=== PATIENT | female | born 1945 | race African-American/Black ===

== ENCOUNTER 2017-01-22 20:42 | Emergency (ER) | payer OTHER ==
[~2017-01-22] VITALS: Ht 162.6 cm; Wt 65.8 kg
[~2017-01-22 20:42] MED LIST: ACETAMINOPHEN-1 EAC1 PO; AMARYL2 MG PO; AMLODIPINE BESY10 MG PO; BLEPH-105 ML OPHTHALMIC; CEPHALEXIN 500500 M2 PO; FLEXERIL PO; IBUPROFEN 600600 M1 PO; LORTAB 5 MG/5001 TA1 PO; MEDROL DOSPAK21 TAB PO; NORCO 5-325 TA1 EACH PO; PERCOCET 5-3251 EACH PO; QUINU10 PD; TRAMADOL 50 MG50 MG PO; ULTRAM 50MG TAB50 MG PO; ZOFRAN ODT4 MG PO; [UNRECOGNIZED DRUG - OTHER] GTT
[2017-01-22 20:44] VITALS: BP 207/111
[2017-01-22] MEDS ORDERED: ULTRAM 50MG TAB50 MG PO (21:12)
[2017-01-22] MEDS ORDERED: IBUPROFEN 600600 M1 PO (21:13)
== END 2017-01-22 21:31 | disposition home or self-care (01) ==
LOC: ER 20:42
DX: K08.89 Other specified disorders of teeth and supporting structures (principal); E11.9 Type 2 diabetes mellitus without complications; I10 Essential (primary) hypertension; F10.99 Alcohol use, unspecified with unspecified alcohol-induced disorder; Z90.710 Acquired absence of both cervix and uterus; Z88.5 Allergy status to narcotic agent; Z88.8 Allergy status to other drugs, medicaments and biological substances

== ENCOUNTER → 2017-04-05 | Outpatient (CLI) | payer OTHER | LOC: SEN 08:49 | DX: I10 Essential (primary) hypertension (principal) ==

== ENCOUNTER → 2017-05-17 | Outpatient (CLI) | payer OTHER ==
--- NOTE | ~2017-05-17 | 2DMMODE ---
[facility] [place] [place] [address] 2 D/M-MODE ECHOCARDIOGRAM Name: LES GURROLA Room #: REG [facility]#: [id number] Admission: 05/17/17 Attend Phys: Shahbaz Frey, Discharge: Date of : 43 Date of Service: 05/17/17 1220 Report #: [id number] THIS REPORT FOR: //name// APPROVED REPORT Study performed: 05/17/2017 09:18:04 EXAM: Comprehensive 2D, Doppler, and color-flow Echocardiogram Patient Location: Out-Patient Status: routine BSA: 1.68 HR: 69 bpm BP: 120/82 mmHg Rhythm: NSR Other Information Study Quality: Good Indications Murmur 2D Dimensions RVDd: 32.15 mm LVEF(%): 60.69 (>50%) IVSd: 11.39 (7-11mm) LVOT Diam: 19.22 (18-24mm) LVDd: 48.27 mm PWd: 10.55 (7-11mm) LVDs: 32.59 (25-40mm) Aortic Root: 30.48 mm Plascencia's LVEF: 60.69 % Volumes Left Atrial Volume (Systole) Single Plane 4CH: 56.74 mL Single Plane 2CH: 52.47 mL LA ESV Index: 36.00 mL/m2 Aortic Valve AoV Peak Reece.: 1.84 m/s AO Peak Gr.: 14.12 mmHg LVOT Max P.26 mmHg LVOT Max V: 1.35 m/s QUINTIN Vmax: 2.13 cm2 Mitral Valve E/A Ratio: 0.6 MV Decel. Time: 288.10 ms [facility] [place] [address] 2 D/M-MODE ECHOCARDIOGRAM Name: LES GURROLA Room #: [facility]#: [id number] Admission: 05/17/17 Attend Phys: Shahbaz Frey, Discharge: Date of : 43 Date of Service: 05/17/17 1220 Report #: [id number] MV E Max Reece.: 0.75 m/s MV A Reece.: 1.16 m/s MV PHT: 83.55 ms IVRT: 92.27 ms Pulmonary Valve PV Peak Reece.: 1.33 m/s PV Peak Gr.: 7.11 mmHg Pulmonary Vein P Vein S: 0.65 m/s P Vein A: 0.28 m/s P Vein D: 0.29 m/s P Vein A Dur.: 143.0 msec P Vein S/D Ratio: 2.24 Tricuspid Valve TR Peak Reece.: 2.77 m/s RAP Estimate: 5.00 mmHg TR Peak Gr.: 30.72 mmHg PA Pressure: 36.00 mmHg Left Ventricle The left ventricle is normal size. Regional wall motion is not well visualized but grossly normal. There is normal left ventricular wall thickness. Left ventricular systolic function is at lower lilmits of normal LVEF is 50%. Mild diastolic dysfunction is present (impaired relaxation pattern). Right Ventricle The right ventricle is normal size. The right ventricular systolic function is normal. Atria Left atrium is mildly dilated. Right atrium is mildly dilated. Aortic Valve Aortic valve leaflets are mildly thickened, mildly calcified, trileaflet. Mild aortic regurgitation. There is no aortic valvular stenosis. Mitral Valve The mitral valve is normal in structure. Mild mitral regurgitation. No evidence of mitral valve stenosis. Tricuspid Valve The tricuspid valve is normal in structure. Mild to moderate tricuspid regurgitation. Estimated PAP is 35-40mmHg. [address] [address] 2 D/M-MODE ECHOCARDIOGRAM Name: LES GURROLA Room #: REG Shan#: [id number] Admission: 05/17/17 Attend Phys: Shahbaz Frey, Discharge: Date of : 43 Date of Service: 05/17/17 1220 Report #: [id number] Pulmonic Valve The pulmonary valve is normal in structure. Mild pulmonic regurgitation. Great Vessels The aortic root is normal in size. IVC is normal in size and collapses >50% with inspiration. Pericardium There is no pericardial effusion. <Conclusion> Left ventricular systolic function is at lower lilmits of normal LVEF is 50%. Mild diastolic dysfunction Both atria are mildly dilated. Aortic valve leaflets are mildly thickened, mildly calcified, trileaflet. Mild aortic regurgitation, no stenosis. Structrally normal mitral vavle. Mild mitral regurgitation. Pulmonary artery pressure of 34-40mmHg No pericardial effusion <ELECTRONICALLY SIGNED> By: Db Traore MD, FACC 05/17/17 1220 1220 1220 Db Traore MD, FACC /INF
== END ==
LOC: CV 08:52
DX: I08.0 Rheumatic disorders of both mitral and aortic valves (principal); I63.9 Cerebral infarction, unspecified; R01.1 Cardiac murmur, unspecified; R09.89 Other specified symptoms and signs involving the circulatory and respiratory systems

== ENCOUNTER 2017-11-17 04:47 | Emergency (ER) | payer OTHER ==
[~2017-11-17] VITALS: Ht 162.6 cm; Wt 62.1 kg
--- NOTE | ~2017-11-17 | EKG ---
[place] [address] [facility] [place] [employer] [place] [address] ELECTROCARDIOGRAM REPORT Name: LES GURROLA [id number] Admission: 11/17/17 Attend Phys: Discharge: 11/17/17 Date of : 43 Report #: [id number] THIS REPORT FOR: //name// [facility] ED Test Date: 2017-11-17 Test Time: 05:11:49 Pat Name: LES GURROLA Department: Room: Gender: F Lowerator Operator: WYATT FELIX : 1945 Requested By: Dilia Galloway Order Number: [id number] MD: Db Traore Measurements Intervals [place] Rate: 60 P: -32 MA: 154 QRS: -24 QRSD: 150 T: 87 QT: 514 QTc: 514 Interpretive Statements Sinus rhythm Left bundle branch block No previous ECG available for comparison Electronically Signed On 11-17-2017 10:19:43 CDT by Db Traore [email or web address] <ELECTRONICALLY SIGNED> By: Db Traore MD, [facility] 11/17/17 1019 0511 0511 Db Traore MD, FACC /EPI
[~2017-11-17 04:47] MED LIST changes: +QUINU10 PD PO
[2017-11-17] MEDS ORDERED: NORVASC5 MG PO (04:57)
[2017-11-17 05:09] LABS: ABSOLUTE NEUTROPHILS 4.9 thou/uL (1.4-8.2); BASOPHILS 0.8 % (0.0-2.0); EOSINOPHILS 1.5 % (0.0-3.0); HEMATOCRIT 28.5 % (37.0-47.0); LYMPHOCYTES 25.4 % (24.0-44.0); MCH 33.9 pg (26.0-34.0); MONOCYTES 5.5 % (1.0-8.0); PLATELET COUNT 171 thou/uL (150-400); POLYS 66.8 % (36.0-66.0); RBC 2.94 mil/uL (4.20-5.00); WBC 7.3 thou/uL (4.0-11.0)
[2017-11-17 05:10] LABS: CALCIUM 9.2 mg/dL (8.5-10.1); CREATININE 2.1 mg/dL (0.6-1.0); POTASSIUM 3.3 mmol/L (3.5-5.1)
[2017-11-17 05:19] LABS: URINE BILIRUBIN NEGATIVE (Negative); URINE BLOOD TRACE (Negative); URINE CLARITY CLEAR; URINE COLOR YELLOW; URINE GLUCOSE-RANDOM* NEGATIVE (Negative); URINE KETONES NEGATIVE (Negative); URINE LEUKOCYTES-REFLEX NEGATIVE (Negative); URINE NITRITE-REFLEX NEGATIVE (Negative); URINE PROTEIN (DIPSTICK) 2+ (Negative); URINE UROBILINOGEN 0.2 E.U./dl (0.2-1.0)
[2017-11-17 05:31] LABS: BACTERIA-REFLEX None Seen /HPF (None Seen); CASTS None Seen /LPF (None Seen); CRYSTALS None Seen /LPF (None Seen); MUCUS None Seen strn/LPF (None Seen); SQUAMOUS 0-3 Few /LPF (0-3); URINE RBC 0-2 Rare /HPF (0-2); URINE WBC-REFLEX 0-5 Rare /HPF (0-5)
[2017-11-17 05:35] LABS: LARGE PLATELETS RARE
[2017-11-17 07:07] VITALS: BP 208/90
== END 2017-11-17 07:08 | disposition home or self-care (01) ==
LOC: ER 04:47
PROVIDERS: Emergency Medicine
DX: S00.83XA Contusion of other part of head, initial encounter (principal); R42 Dizziness and giddiness; I10 Essential (primary) hypertension; E11.9 Type 2 diabetes mellitus without complications; Z90.710 Acquired absence of both cervix and uterus; W19.XXXA Unspecified fall, initial encounter; Y93.89 Activity, other specified; Y92.89 Other specified places as the place of occurrence of the external cause; Y99.8 Other external cause status

== ENCOUNTER 2017-11-17 20:52 | Inpatient (IN) | payer OTHER ==
[~2017-11-17] VITALS: Ht 165.1 cm; Wt 58.7 kg
--- NOTE | ~2017-11-17 | EEG ---
[facility] [address] [place] [address] ELECTROENCEPHALOGRAM Name: LES GURROLA Room #: 420-P [facility] IN M.R.#: [id number] Admission: 11/17/17 Attend Phys: Jerson Deal MD Discharge: Date of : 43 Report #: [id number] THIS REPORT FOR: //name// CC: Jerson Levine DATE OF SERVICE: 11/19/2017 This patient is being evaluated for altered mental status and passing out spell. EEG was done by placing the electrodes by standard 10-20 system of electrode placement. Both referential and sequential montages were used for recording. Background activity in this patient's EEG is about 8 Hz and 30 microvolt. It is intermixed with theta range slowing on both sides. The patient went to sleep and that is associated with bilaterally symmetrical sleep spindle and vertex sharp waves. Photic stimulation is unremarkable. Throughout the record, no active epileptiform activity was noticed. IMPRESSION: Moderately abnormal EEG because it is intermixed with theta range slowing on both sides. That is a nonspecific abnormality which can occur with encephalopathy, effect of psychotropic medication, dementia, etc. No active epileptiform activity was noticed during this record. Thank you very much for this referral. By: 1215 1350 Sanjeev Delgado MD /nt
--- NOTE | ~2017-11-17 | HC ---
[facility] [place] [address] CONSULTATION Name: LES GURROLA Room #: 420-P [facility] IN M.R.#: [id number] Admission: 11/17/17 Attend Phys: Jerson Deal MD Discharge: Date of : 43 Report #: [id number] THIS REPORT FOR: //name// CC: Jerson Levine DATE OF SERVICE: 11/18/2017 HISTORY OF PRESENT ILLNESS: This is a 72-year-old female patient who was evaluated by me for dizziness. History is poorly defined. She said she has been dizzy for about 2 months. It is worse when she stands up. It is severe and she falls down because of that. It started spontaneously without any trauma. There is no associated focal deficit. She does have a significantly decreased memory. She has seen a neurologist who ordered an MRI in this patient and started the patient on Namenda. The patient has not used Namenda or filled up the prescription yet. REVIEW OF SYSTEMS: Indicate that this patient apparently has a history of dementia, diabetes, hypertension and now she has dizziness. She also has falls. A 14-point review of system was carried out and she has a history of depression and corneal abrasion. She is not complaining of any pain anywhere. She does not have any new eye, ENT, cardiac, respiratory, GI, , musculoskeletal, constitutional, dermatological, hematological, psychiatric, throat, allergic symptom associated with present symptomatology. PAST MEDICAL HISTORY: Positive for what looks like dementia. FAMILY HISTORY: Negative for any early age stroke. SOCIAL HISTORY: She denies the use of alcohol. PHYSICAL EXAMINATION: Indicate she is alert. She thinks it is March. She does not know what hospital she is in. Her memory and fund of knowledge is very poor. Cranial nerve examination 2-12 looks mostly unremarkable. Her pupil is somewhat asymmetrical, but I think it may be old. She has symmetrical strength, sensation, reflexes and tone in all 4 extremities. There is no cerebellar sign. She does appear to have some cataract, so I could not look at the fundus very well. She is moderately well built individual. She has no meningeal signs. She has no thyroid mass. Cardiac examination showed a question of murmur. No respiratory difficulty or rhonchi was noticed. Pulses are palpable. She has no edema, cyanosis or jaundice. Her vision and hearing looks adequate. Blood pressure is 167/86, respirations 16, pulse is 74, temperature is 97.9. LABORATORY DATA: Her last sodium is normal. Her B12 and TSH are normal. No imaging studies available. She apparently went down for MRI, [place] [address] CONSULTATION Name: UYEN GURROLARay Desai Room #: 420-P [facility] IN M.R.#: [id number] Admission: 11/17/17 Attend Phys: Jerson Deal MD Discharge: Date of : 43 Report #: [id number] IMPRESSION: This patient appeared to have pretty significant dementia as well as dizziness. We need to await for MRI to see if there is any reason for that. We may have to do further testing. I will check an EEG in this patient because she is having repeated fall and has dementia. Her further workup will depend upon the outcome of this testing. We will also check for any postural hypotension. RECOMMENDATIONS: 1. We will get an EEG done. 2. We will await the MRI. 3. She may need some more workup depending upon that. 4. She does have a pretty advanced dementia and she will need supervised care all the time. Her family came in and I discussed that with the family and they are agreeable with this plan. Thank you very much for this referral. By: 1700 Sanjeev Delgado MD /nt
--- NOTE | ~2017-11-17 | 2DMMODE ---
[facility] [address] [place] [address] 2 D/M-MODE ECHOCARDIOGRAM Name: LES GURROLA Room #: 420-P [facility] IN ..#: [id number] Admission: 11/17/17 Attend Phys: Jerson Deal, Discharge: Date of : 43 Date of Service: 11/18/17 1316 Report #: [id number] THIS REPORT FOR: //name// APPROVED REPORT Study performed: 11/18/2017 10:51:47 EXAM: Comprehensive 2D, Doppler, and color-flow Echocardiogram Patient Location: Echo lab Room #: [facility] Status: routine BSA: 1.64 HR: 68 bpm BP: 167/86 mmHg Rhythm: NSR Other Information Study Quality: Adequate Technically limited study due to highly uncooperative patient, unable to finish exam. Indications Dizziness. Hx: murmur, DM, HTN. 2D Dimensions RVDd: 35.17 mm LVEF(%): 32.89 (>50%) IVSd: 14.09 (7-11mm) LVOT Diam: 20.41 (18-24mm) LVDd: 60.23 mm PWd: 10.59 (7-11mm) Ascending Ao: 37.62 (22-36mm) LVDs: 50.65 (25-40mm) Aortic Root: 32.12 mm Plascencia's LVEF: 32.89 % Volumes Left Atrial Volume (Systole) Single Plane 4CH: 68.97 mL Single Plane 2CH: 54.84 mL LA ESV Index: 40.00 mL/m2 Aortic Valve AoV Peak Reece.: 1.49 m/s AO Peak Gr.: 8.91 mmHg LVOT Max P.82 mmHg LVOT Max V: 1.10 m/s QUINTIN Vmax: 2.40 cm2 Mitral Valve [facility] [employer] [address] 2 D/M-MODE ECHOCARDIOGRAM Name: LES GURROLA Room #: 420-P [facility] IN M.R.#: [id number] Admission: 11/17/17 Attend Phys: Jerson Deal, Discharge: Date of : 43 Date of Service: 11/18/17 1316 Report #: [id number] E/A Ratio: 0.4 MV Decel. Time: 303.59 ms MV E Max Reece.: 0.59 m/s MV A Reece.: 1.32 m/s MV PHT: 88.04 ms IVRT: 155.71 ms Pulmonary Valve PV Peak Reece.: 1.84 m/s PV Peak Gr.: 15.25 mmHg Pulmonary Vein P Vein S: 0.48 m/s P Vein A: 0.26 m/s P Vein D: 0.22 m/s P Vein A Dur.: 110.7 msec P Vein S/D Ratio: 2.18 Tricuspid Valve TR Peak Reece.: 2.47 m/s TR Peak Gr.: 24.47 mmHg Left Ventricle Left ventricle is dilated. Regional wall motion abnormalities are noted. With anteroseptal and septal apical severe hypokinesis to akinesis Mild basal septal hypertrophy is present. Left ventricular systolic function is moderately decreased. LVEF is 35-40%. Mild diastolic dysfunction is present (impaired relaxation pattern). Right Ventricle The right ventricle is normal size. The right ventricular systolic function is normal. Atria Left atrium is dilated. Right atrium is dilated. Aortic Valve The Aortic valve is sclerotic. Mild aortic regurgitation. There is no aortic valvular stenosis. Mitral Valve Mitral valve leaflets are thickened. Moderate mitral regurgitation. Tricuspid Valve The tricuspid valve is normal in structure. Mild tricuspid regurgitation. Estimated PAP of 25mmHg plus the right atrial pressure. [facility] [address] [place] [address] 2 D/M-MODE ECHOCARDIOGRAM Name: LES GURROLA Room #: 420-P [facility] IN [facility]#: [id number] Admission: 11/17/17 Attend Phys: Jerson Deal, Discharge: Date of : 43 Date of Service: 11/18/17 1316 Report #: [id number] Pulmonic Valve The pulmonary valve is normal in structure. Trace pulmonic regurgitation. Great Vessels The aortic root is normal in size. The ascending aorta is normal in size. IVC is not visualized. Pericardium There is no pericardial effusion. <Conclusion> LVEF is 35-40%. Regional wall motion abnormalities are noted. With anteroseptal and septal apical severe hypokinesis to akinesis Left atrium is dilated. Right atrium is dilated. The Aortic valve is sclerotic. Mild aortic regurgitation. Mitral valve leaflets are thickened. Moderate mitral regurgitation. The tricuspid valve is normal in structure. Mild tricuspid regurgitation. Estimated PAP of 25mmHg plus the right atrial pressure. The pulmonary valve is normal in structure. Trace pulmonic regurgitation. There is no pericardial effusion. <ELECTRONICALLY SIGNED> By: Luís Singletary MD 11/18/17 1316 15 15 Luís Singletary MD /INF
--- NOTE | ~2017-11-17 | EKG ---
[address] [place] [place] [address] ELECTROCARDIOGRAM REPORT Name: LES GURROLA Room #: 420-P [facility] IN .R.#: [id number] Admission: 11/17/17 Attend Phys: Jerson Deal MD Discharge: Date of : 43 Report #: [id number] THIS REPORT FOR: //name// [facility] ED Test Date: 2017-11-17 Test Time: 21:20:44 Pat Name: LES GURROLA Department: Room: Gender: F Credit Clerk: TORRES : 1945 Requested By: Dilia Galloway Order Number: [id number] MD: bD Traore Measurements Intervals [place] Rate: 60 P: -23 [place]: 152 QRS: -22 QRSD: 153 T: 90 QT: 522 QTc: 522 Interpretive Statements Sinus rhythm Left bundle branch block Compared to ECG 11/17/2017 05:11:49 No significant changes Electronically Signed On 11-18-2017 10:01:11 CDT by Db Traore [email or web address] <ELECTRONICALLY SIGNED> By: Db Traore MD, [facility] 11/18/171000 19 19 Db Traore MD, [facility] /EPI
[~2017-11-17 20:52] MED LIST changes: +NORVASC5 MG PO
[2017-11-17 20:58] VITALS: BP 199/98
[2017-11-17 23:44] VITALS: BP 178/91
[2017-11-18 00:06] VITALS: BP 175/81
[2017-11-18 00:15] VITALS: BP 192/94
[2017-11-18 04:20] VITALS: BP 162/84
[2017-11-18 04:26] LABS: TSH 2.211 uIU/mL (0.358-3.740)
[2017-11-18 04:54] LABS: FOLIC ACID 35.2 ng/mL (8.6-58.9)
[2017-11-18 09:20] VITALS: BP 167/86
[2017-11-18 09:28] VITALS: BP 167/86
[2017-11-18 10:20] VITALS: BP 175/81
[2017-11-19 06:10] LABS: HEMATOCRIT 29.9 % (37.0-47.0); HEMOGLOBIN 10.1 gm/dL (12.0-15.0); MCH 33.1 pg (26.0-34.0); MCHC 33.8 g/dL (28.0-37.0); MCV 97.8 fL (80.0-100.0); RBC 3.06 mil/uL (4.20-5.00); RDW 12.9 % (10.5-14.5); WBC 7.6 thou/uL (4.0-11.0)
[2017-11-19 06:40] LABS: ANION GAP 8 mmol/L (7-16); BUN 26 mg/dL (7-18); CALCIUM 9.5 mg/dL (8.5-10.1); CHLORIDE 108 mmol/L (98-107); CO2 27 mmol/L (21-32); CREATININE 1.9 mg/dL (0.6-1.0); GLUCOSE 85 mg/dL (74-106); POTASSIUM 3.4 mmol/L (3.5-5.1); SODIUM 143 mmol/L (136-145); TROPONIN-I <0.06 ng/mL (<0.06)
[2017-11-19 07:30] VITALS: BP 181/94
[2017-11-19 15:15] VITALS: BP 179/70
[2017-11-19 20:33] VITALS: BP 166/103
[2017-11-19 23:00] VITALS: BP 155/92
[2017-11-20 05:20] VITALS: BP 139/99
[2017-11-20 05:33] LABS: HEMATOCRIT 33.8 % (37.0-47.0); HEMOGLOBIN 11.3 gm/dL (12.0-15.0); MCH 32.5 pg (26.0-34.0); MCHC 33.5 g/dL (28.0-37.0); MCV 96.9 fL (80.0-100.0); RBC 3.49 mil/uL (4.20-5.00); RDW 12.6 % (10.5-14.5); WBC 12.2 thou/uL (4.0-11.0)
[2017-11-20 05:40] LABS: CALCIUM 9.4 mg/dL (8.5-10.1); CREATININE 1.9 mg/dL (0.6-1.0); MAGNESIUM 1.8 mg/dL (1.8-2.4); POTASSIUM 3.6 mmol/L (3.5-5.1)
[2017-11-20 07:27] VITALS: BP 170/96
[2017-11-20 15:34] VITALS: BP 175/91
[2017-11-20 16:42] LABS: URINE BILIRUBIN NEGATIVE (Negative); URINE BLOOD 1+ (Negative); URINE CLARITY CLEAR; URINE COLOR YELLOW; URINE GLUCOSE-RANDOM* NEGATIVE (Negative); URINE KETONES TRACE (Negative); URINE LEUKOCYTES-REFLEX NEGATIVE (Negative); URINE NITRITE-REFLEX NEGATIVE (Negative); URINE PROTEIN (DIPSTICK) 2+ (Negative); URINE UROBILINOGEN 0.2 E.U./dl (0.2-1.0)
[2017-11-20 16:57] LABS: CASTS None Seen /LPF (None Seen)
[2017-11-20 16:58] LABS: SQUAMOUS 4-10 Moderate /LPF (0-3); URINE WBC-REFLEX 0-5 Rare /HPF (0-5)
[2017-11-20 16:59] LABS: BACTERIA-REFLEX None Seen /HPF (None Seen); CRYSTALS None Seen /LPF (None Seen); URINE RBC 3-10 Few /HPF (0-2)
[2017-11-20 19:25] VITALS: BP 120/61
[2017-11-21 05:39] LABS: HEMATOCRIT 28.5 % (37.0-47.0); HEMOGLOBIN 9.8 gm/dL (12.0-15.0); MCH 33.6 pg (26.0-34.0); MCHC 34.5 g/dL (28.0-37.0); MCV 97.5 fL (80.0-100.0); RBC 2.93 mil/uL (4.20-5.00); RDW 12.6 % (10.5-14.5); WBC 8.2 thou/uL (4.0-11.0)
[2017-11-21 05:57] LABS: CALCIUM 8.4 mg/dL (8.5-10.1); CREATININE 1.9 mg/dL (0.6-1.0); MAGNESIUM 1.7 mg/dL (1.8-2.4); POTASSIUM 3.4 mmol/L (3.5-5.1)
[2017-11-21 07:15] VITALS: BP 179/90
[2017-11-21] MEDS ORDERED: NITRO-BID1 GM TOP (12:56)
[2017-11-21] MEDS ORDERED: MAGOX 400400 MG PO (12:56)
[2017-11-21] MEDS ORDERED: ANTIVERT25 MG PO (12:56)
[2017-11-21] MEDS ORDERED: COZAAR100 MG PO (12:56)
[2017-11-21] MEDS ORDERED: COLACE100 MG PO (12:56)
[2017-11-21] MEDS ORDERED: COREG6.25 MG PO (12:56)
[2017-11-21] MEDS ORDERED: TYLENOL325 MG PO (12:56)
[2017-11-21] MEDS ORDERED: MIRALAX17 GM PO (12:56)
[2017-11-21 15:41] VITALS: BP 190/96
== END 2017-11-21 16:20 | DRG 70 ==
LOC: ER 20:52 → 4E 23:23 → EROBS 23:23 → 4E 23:23
PROVIDERS: Internal Medicine; Nurse Practitioner Family
DX: G93.41 Metabolic encephalopathy (principal); E43 Unspecified severe protein-calorie malnutrition; N17.9 Acute kidney failure, unspecified; I42.9 Cardiomyopathy, unspecified; F03.90 Unspecified dementia, unspecified severity, without behavioral disturbance, psychotic disturbance, mood disturbance, and anxiety; R41.0 Disorientation, unspecified; E11.22 Type 2 diabetes mellitus with diabetic chronic kidney disease; I12.9 Hypertensive chronic kidney disease with stage 1 through stage 4 chronic kidney disease, or unspecified chronic kidney disease; D72.829 Elevated white blood cell count, unspecified; E87.6 Hypokalemia; E83.42 Hypomagnesemia; K59.00 Constipation, unspecified; N18.9 Chronic kidney disease, unspecified; Z68.21 Body mass index [BMI] 21.0-21.9, adult; Z98.42 Cataract extraction status, left eye; Z90.710 Acquired absence of both cervix and uterus; Z88.6 Allergy status to analgesic agent; Z88.8 Allergy status to other drugs, medicaments and biological substances; Z88.0 Allergy status to penicillin
CPT/HCPCS: 10084

== ENCOUNTER 2017-11-21 14:53 | Inpatient (IN) | payer OTHER ==
[2017-11-21] VITALS: BP 165/89
[~2017-11-21] VITALS: Ht 162.6 cm; Wt 56.7 kg
--- NOTE | ~2017-11-21 | HC ---
[facility] [place] [address] CONSULTATION Name: LES GURROLA Room #: 513-P ADM IN M.R.#: [id number] Admission: 11/21/17 Attend Phys: Pedro Mccormick MD Discharge: Date of : 43 Report #: [id number] THIS REPORT FOR: //name// CC: Pedro Levine DATE OF SERVICE: 11/23/2017 TYPE OF REPORT: Neurobehavioral status exam. ATTENDING PHYSICIAN: Pedro Mccormick M.D. LUMBER STRAIGHTENER: Braden Freeman, PhD. CLINICAL PRESENTATION: The patient is a 72-year-old -[place] female admitted to the [facility] with dizziness, recent fall, confusion and disorientation. She was initially diagnosed with acute renal insufficiency, acute encephalopathy, weakness and cardiomyopathy. Initial treatment included Haldol and Depakote, which have both been discontinued. The patient carries an admitting diagnosis of metabolic encephalopathy, gait instability with falls, dizziness, acute renal insufficiency, premorbid dementia, cardiomyopathy with ejection fraction of 35%-50%, hypokalemia with hypomagnesemia and hypertension. A complete description of her medical condition and history along with medications can be found in her medical record. Neuropsychological consultation was requested to provide assistance in the assessment of cognitive and emotional status and to provide recommendations and services. Prior to this most recent medical event, she was living independently with her daughter. The daughter was providing assistance in the management of instrumental and basic activities of daily living. However, the patient reported to have been able to dress herself. She is a high school graduate. 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 She has 2 children. As indicated, her daughter provides assistance with ADL's to an extent allowing her to maintain living within her community. She has been living with her daughter for many years. TECHNIQUES UTILIZED: Clinical interview, review of medical records, staff consultation and behavioral observation, mini mental status exam 2 standard version, clock drawing. EXAMINATION FINDINGS: The patient was alert and cooperative with the assessment. However, she is confused and disoriented. She is unable to [facility] [address] [place] [address] CONSULTATION Name: LES GURROLA Room #: 513-P [facility] IN ..#: [id number] Admission: 11/21/17 Attend Phys: Pedro Mccormick MD Discharge: Date of : 43 Report #: [id number] indicate prior events that preceded her hospitalization as well as the purpose of her treatment. She has had numerous falls and did strike her head upon this most recent fall but her current presentation is described as more longstanding. Symptoms that are reported include sleep disturbance, anxiety, confusion and memory. She is intermittently very disorganized to location, place and time. Her performance on the MMSE 2 brief version was extremely low with a raw score of 6/30. She was 3/3 for initial registration, 0/5 for orientation to time and 3/[address]. She was 0/3 for immediate recall of 3 items after a brief time delay and distraction. Her performance on the MMSE 2 standard version was extremely low with a raw score of 14/30. She was 0/5 for serial sevens, 2/2 for naming, 1/1 for repetition, 3/3 for auditory comprehension and 1/1 for being able to read and follow a single command. Deficits include difficulty with writing a sentence and unable to copy a simple geometric design. Her performance on clock drawing resulted in perseveration of zero/circles and disorientation in tasks of copying. DIAGNOSTIC IMPRESSION: Major neurocognitive disorder (dementia), possibly due to Alzheimer's disease, without behavior disturbance - extent to be determined, severe at this time. RECOMMENDATIONS: The patient will continue to require 24-hour care that includes assistance in the management of medication, nutrition and finances. Family should also assist her in attending appointments with healthcare providers. Following discharge a workup for dementia is indicated. She may benefit from medication to support memory and an antidepressant medication. Thank you very much for allowing me to provide the consultation on this patient. <ELECTRONICALLY SIGNED> By: Braden Freeman, PhD 11/24/17 1554 1407 2205 Braden Freeman, PhD /nt
--- NOTE | ~2017-11-21 | H ---
[facility] [place] [address] HISTORY AND PHYSICAL Name: LES GURROLA Room #: 513-P ADM IN M.R.#: [id number] Admission: 11/21/17 Attend Phys: Pedro Mccormick MD Discharge: Date of : 43 Report #: [id number] THIS REPORT FOR: //name// CC: Pedro Levine DATE OF SERVICE: 11/21/2017 HISTORY AND PHYSICAL/POSTADMISSION PHYSICIAN EVALUATION HISTORY OF PRESENT ILLNESS: The patient is a 72-year-old -Haitian female, who was originally admitted to [facility] on 11/17/2017. She presented at that time with dizziness and had a fall without noted head injury or loss of consciousness. She was diagnosed and admitted with acute renal insufficiency, acute encephalopathy, weakness and cardiomyopathy. Neurology saw her. MRI showed no acute process. She continued to be more confused than baseline and there was concern with the loss of balance and falling and decreased functional abilities with her decreased cognition. She was treated with some Haldol and Depakote, but family requested discharge of those medications. Renal function has been monitored with creatinine at 2.0. She has been noted to have a significant functional decline from her premorbid status and has now been admitted for acute in-hospital inpatient rehabilitation. PAST MEDICAL HISTORY: Includes history of diabetes mellitus and hypertension. PAST SURGICAL HISTORY: Includes a left vitrectomy and she has had a hysterectomy. MEDICATIONS: Please see the full medication listing. This includes vitamins, herbals, and supplements. HABITS: No history of tobacco abuse or alcohol abuse is noted. ALLERGIES: PENICILLIN, CETIRIZINE, AND HYDROCODONE. SOCIAL HISTORY: She lives with daughter. [place], no steps in, but 6 steps up to the living room with the patient's room, bathroom and kitchen, 6 stairs to enter down the laundry. Daughter does the laundry. The patient did not utilize gait aids. Daughter is noted to work during the day and the patient could care for her basic needs. REVIEW OF SYSTEMS: She did not offer any current complaints of chest pain, shortness of breath or abdominal discomfort. No focal extremity pain complaints. She notes some frustration with her current condition. PHYSICAL EXAMINATION: [address] [address] HISTORY AND PHYSICAL Name: LES GURROLA Room #: 513-P [facility] IN [facility].#: [id number] Admission: 11/21/17 Attend Phys: Pedro Mccormick MD Discharge: Date of : 44 Report #: [id number] GENERAL: She is a 72-year-old -Haitian female, no obvious distress. She is alert. She does not know the name of place, does not know the year. She is pleasant, will follow basic 1 step command. VITAL SIGNS: Last recorded temperature 98.5, pulse 65, respirations 18, blood pressure 185/97. HEENT: Facies appeared symmetric. CHEST: Sounded clear to auscultation. CARDIOVASCULAR: Regular rate and rhythm. ABDOMEN: Bowel sounds positive, nontender. GENITOURINARY AND RECTAL: Deferred. EXTREMITIES: She has functional range of motion of both upper extremities. Strength is grade 4-/5. DTRs are trace to 1. Lower extremities with no focal calf swelling, functional range of motion, strength is grade 4-/5. DTRs are trace to 1. Transfers are contact guard with gait min assist 250 feet. In occupational therapy, lower body dressing is being assessed. She is min assist for bathing and supervision for grooming. ASSESSMENT: A 72-year-old -Haitian female with the following problem list: 1. Metabolic encephalopathy. She is off the Haldol and the Depakote. Significant decline from premorbid status. 2. Gait instability with falls. 3. Dizziness. 4. Acute renal insufficiency. 5. Premorbid dementia. 6. Cardiomyopathy with ejection fraction of 35-50%. 7. Hypokalemia with hypomagnesemia. 8. Hypertension. PLAN: The patient is admitted for acute in-hospital inpatient rehabilitation. From a post-admission physician evaluation perspective, there are no relevant changes since the preadmission screening. Please see the above review of prior and current medical and functional conditions and comorbidities. Please see the patient's previous and current functional status. As far as risk of complications, the patient has multiple medical comorbidities as noted above. The initial plan of care involves the interdisciplinary acute inpatient rehabilitation program with the goal of maximizing the patient's functional independence, so that she can hopefully return back to her prior living situation. Measurable functional goals would be for the patient to become modified independent with transfers, mobility, ADLs, and improvement in cognition, so that she can return back to her prior functional level and return back home with her daughter. Prognosis is reasonably good with estimated length of stay probably at least 7-14 days pending progress. Potential barriers would include her multiple medical comorbidities and decreased functional status. The patient's diagnosis is appropriate. She does meet the medical necessity [address] [address] HISTORY AND PHYSICAL Name: LES GURROLA Room #: 513-P ADM IN M.R.#: [id number] Admission: 11/21/17 Attend Phys: Pedro Mccormick MD Discharge: Date of : 43 Report #: [id number] criteria and we will have the qa consultant physicians involved as indicated. She does have the tolerance for therapies and has appropriate discharge goals back to the home setting. By: 0828 0850 Pedro Mccormick MD /nt
--- NOTE | ~2017-11-21 | PLAN ---
[facility] [place] [address] REHAB UNIT PLAN OF CARE Name: LES GURROLA Room #: 513-P ADM IN M.R.#: [id number] Admission: 11/21/17 Attend Phys: Pedro Mccormick MD Discharge: Date of : 44 Report #: [id number] THIS REPORT FOR: //name// CC: Pedro Levine DATE OF SERVICE: 11/24/2017 PLAN: The overall plan of care is based on the preadmission screen, post-admission physician evaluation and information garnered from therapy assessments. 1. Estimated length of stay is going to be around 7-14 days pending progress. 2. Medical prognosis is reasonably good. 3. Anticipated interventions includes the interdisciplinary acute inpatient rehabilitation program with PT, OT and speech, rehabilitation nursing assisting regarding medication management, skin care prophylaxis, bowel and bladder issues and nursing education. Case management is involved as well as the rest of the interdisciplinary acute inpatient rehabilitation team. The multiple rehab consultant physicians are also involved as well. 4. Anticipated functional outcomes would be for the patient to become modified independent with functional mobility and ADLs and improved cognition to the point where she can return back to the home setting. 5. Discharge destination will be back home where she lives with her daughter. 6. Expected therapy by discipline would include PT, OT and speech 1 hour per day, each five days a week throughout the duration of the acute inpatient rehabilitation stay. By: 1023 [id number] Pedro Mccormick MD /hiral
[~2017-11-21 14:53] MED LIST changes: +ANTIVERT25 MG PO; +COLACE100 MG PO; +COREG6.25 MG PO; +COZAAR100 MG PO; +MAGOX 400400 MG PO; +MIRALAX17 GM PO; +NITRO-BID1 GM TOP; +TYLENOL325 MG PO
[2017-11-21 16:45] VITALS: BP 190/100
[2017-11-21 20:22] VITALS: BP 182/105
[2017-11-22 06:00] VITALS: BP 185/97
[2017-11-22 06:30] LABS: HEMOGLOBIN 9.6 gm/dL (12.0-15.0); MCH 33.4 pg (26.0-34.0); MCHC 35.4 g/dL (28.0-37.0); MCV 94.3 fL (80.0-100.0); RBC 2.86 mil/uL (4.20-5.00); RDW 12.7 % (10.5-14.5); WBC 7.6 thou/uL (4.0-11.0)
[2017-11-22 06:43] LABS: CALCIUM 9.3 mg/dL (8.5-10.1); MAGNESIUM 1.8 mg/dL (1.8-2.4); POTASSIUM 3.8 mmol/L (3.5-5.1)
[2017-11-22 07:30] VITALS: BP 147/91
[2017-11-22 13:35] VITALS: BP 121/57
[2017-11-22 19:56] VITALS: BP 165/85
[2017-11-23 08:53] VITALS: BP 162/88
[2017-11-23 19:30] VITALS: BP 180/102
[2017-11-24 08:30] VITALS: BP 159/84
[2017-11-24 15:57] VITALS: BP 181/97
[2017-11-24 19:46] VITALS: BP 171/89
[2017-11-25 07:45] VITALS: BP 189/101
[2017-11-25 09:52] VITALS: BP 157/85
[2017-11-25] MEDS ORDERED: HYDRALAZINE 10M10 MG PO (09:58)
[2017-11-25] MEDS ORDERED: ERGOCALCIF50000 UNIT PO (09:58)
[2017-11-25] MEDS ORDERED: COZAAR100 MG PO (09:59)
[2017-11-25] MEDS ORDERED: MAGOX 400400 MG PO (09:59)
[2017-11-25 10:12] VITALS: BP 157/85
[2017-11-25 17:01] VITALS: BP 157/85
== END 2017-11-25 17:03 | disposition home health service (06) | DRG 70 ==
LOC: ENTRNSPT 11-25 16:33
PROVIDERS: Nurse Practitioner Family
DX: G93.41 Metabolic encephalopathy (principal); E43 Unspecified severe protein-calorie malnutrition; I42.9 Cardiomyopathy, unspecified; F05 Delirium due to known physiological condition; N17.9 Acute kidney failure, unspecified; R26.9 Unspecified abnormalities of gait and mobility; R42 Dizziness and giddiness; E87.6 Hypokalemia; E83.42 Hypomagnesemia; F01.50 Vascular dementia, unspecified severity, without behavioral disturbance, psychotic disturbance, mood disturbance, and anxiety; D64.9 Anemia, unspecified; R53.81 Other malaise; E55.9 Vitamin D deficiency, unspecified; N18.9 Chronic kidney disease, unspecified; E11.22 Type 2 diabetes mellitus with diabetic chronic kidney disease; I12.9 Hypertensive chronic kidney disease with stage 1 through stage 4 chronic kidney disease, or unspecified chronic kidney disease; K59.00 Constipation, unspecified; Z90.710 Acquired absence of both cervix and uterus; Z88.0 Allergy status to penicillin; Z88.6 Allergy status to analgesic agent; Z88.8 Allergy status to other drugs, medicaments and biological substances; Z91.81 History of falling; Z68.21 Body mass index [BMI] 21.0-21.9, adult
CPT/HCPCS: 10112

== ENCOUNTER 2018-04-16 06:32 | Inpatient (IN) | payer OTHER ==
[~2018-04-16] VITALS: Ht 162.6 cm; Wt 61.2 kg
--- NOTE | ~2018-04-16 | EKG ---
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 Hatchery Supervisor: eric : 1945 Requested By: Iban Gusman Order Number: [id number] MD: Db Traore Measurements Intervals [place] Rate: 76 P: -26 MO: 161 QRS: -25 QRSD: 149 T: 95 QT: 472 QTc: 531 Interpretive Statements Sinus rhythm Left bundle branch block Baseline wander in lead(s) V4 Compared to ECG 11/17/2017 21:20:44 No significant changes Electronically Signed On 04-16-2018 8:48:39 DRAG OUT MAN by Db Traore [email or web address] <ELECTRONICALLY SIGNED> By: Db Traore MD, [facility] 04/16/18 0848 3 3 Db Traore MD, [facility] /EPI
[~2018-04-16 06:32] MED LIST changes: +ERGOCALCIF50000 UNIT PO; +HYDRALAZINE 10M10 MG PO
[2018-04-16 06:33] VITALS: BP 200/105
[2018-04-16] MEDS ORDERED: AMLODIPINE BESY10 MG PO (06:46)
[2018-04-16] MEDS ORDERED: NITRO-BID1 GM TOP (06:48)
[2018-04-16] MEDS ORDERED: NAMENDA 10 MG T10 MG PO (06:49)
[2018-04-16] MEDS ORDERED: ACCUPRIL40 MG PO (06:49)
[2018-04-16 06:50] LABS: BASOPHILS 0.7 % (0.0-2.0); EOSINOPHILS 1.5 % (0.0-3.0); HEMOGLOBIN 9.5 gm/dL (12.0-15.0); LYMPHOCYTES 26.4 % (24.0-44.0); MCH 34.1 pg (26.0-34.0); MCV 97.4 fL (80.0-100.0); MONOCYTES 8.2 % (1.0-8.0); PLATELET COUNT 144 thou/uL (150-400); POLYS 63.2 % (36.0-66.0); RBC 2.78 mil/uL (4.20-5.00); RDW 12.6 % (10.5-14.5); WBC 4.8 thou/uL (4.0-11.0)
[2018-04-16] MEDS ORDERED: CIPRO500 MG PO (06:50)
[2018-04-16 07:03] LABS: ANION GAP 9 mmol/L (7-16); BUN 41 mg/dL (7-18); CHLORIDE 106 mmol/L (98-107); CO2 25 mmol/L (21-32); CREATININE 2.5 mg/dL (0.6-1.0); GLUCOSE 86 mg/dL (74-106); POTASSIUM 3.5 mmol/L (3.5-5.1); SODIUM 140 mmol/L (136-145)
[2018-04-16 07:11] LABS: TROPONIN-I <0.06 ng/mL (<0.06)
[2018-04-16 07:58] LABS: URINE BILIRUBIN NEGATIVE (Negative); URINE BLOOD TRACE (Negative); URINE CLARITY CLEAR; URINE COLOR YELLOW; URINE GLUCOSE-RANDOM* NEGATIVE (Negative); URINE KETONES NEGATIVE (Negative); URINE LEUKOCYTES-REFLEX NEGATIVE (Negative); URINE NITRITE-REFLEX NEGATIVE (Negative); URINE PROTEIN (DIPSTICK) 1+ (Negative); URINE SPECIFIC GRAVITY 1.015 (1.005-1.035); URINE UROBILINOGEN 0.2 E.U./dl (0.2-1.0)
[2018-04-16 08:05] VITALS: BP 198/100
[2018-04-16 08:08] LABS: CASTS None Seen /LPF (None Seen); CRYSTALS None Seen /LPF (None Seen); SQUAMOUS 4-10 Moderate /LPF (0-3); URINE RBC 0-2 Rare /HPF (0-2)
[2018-04-16 08:09] LABS: BACTERIA-REFLEX None Seen /HPF (None Seen); URINE WBC-REFLEX None Seen /HPF (0-5)
[2018-04-16 09:22] VITALS: BP 168/77
[2018-04-16 09:39] VITALS: BP 213/111
[2018-04-16 13:14] VITALS: BP 140/75
[2018-04-16 19:11] VITALS: BP 155/79
[2018-04-17] VITALS (8 sets, daily range): BP systolic 149–175; BP diastolic 68–90
[2018-04-17 03:46] LABS: ABSOLUTE NEUTROPHILS 3.1 thou/uL (1.4-8.2); BASOPHILS 0.5 % (0.0-2.0); EOSINOPHILS 1.7 % (0.0-3.0); HEMATOCRIT 25.6 % (37.0-47.0); HEMOGLOBIN 8.7 gm/dL (12.0-15.0); LYMPHOCYTES 25.8 % (24.0-44.0); MCH 33.5 pg (26.0-34.0); MCV 98.5 fL (80.0-100.0); MONOCYTES 8.5 % (1.0-8.0); PLATELET COUNT 133 thou/uL (150-400); POLYS 63.5 % (36.0-66.0); RDW 12.7 % (10.5-14.5); WBC 4.9 thou/uL (4.0-11.0)
[2018-04-17 03:57] LABS: CALCIUM 8.9 mg/dL (8.5-10.1); CREATININE 2.1 mg/dL (0.6-1.0); POTASSIUM 3.2 mmol/L (3.5-5.1)
[2018-04-17 04:40] LABS: LARGE PLATELETS RARE; PLATELET ESTIMATE SLIGHTLY DECREASED; POLYCHROMASIA OCCASIONAL
[2018-04-18 08:00] VITALS: BP 169/83
[2018-04-18] MEDS ORDERED: SEROQUEL 25 MG25 M1 PO (09:32)
[2018-04-18 10:06] VITALS: BP 169/83
== END 2018-04-18 14:25 | disposition home or self-care (01) | DRG 682 ==
LOC: ER 06:32 → 4W 08:13 → EROBS 08:13 → 4W 09:32
PROVIDERS: Emergency Medicine; Nurse Practitioner
DX: N17.9 Acute kidney failure, unspecified (principal); E43 Unspecified severe protein-calorie malnutrition; I42.9 Cardiomyopathy, unspecified; I16.1 Hypertensive emergency; F03.91 Unspecified dementia, unspecified severity, with behavioral disturbance; I16.0 Hypertensive urgency; E11.22 Type 2 diabetes mellitus with diabetic chronic kidney disease; I12.9 Hypertensive chronic kidney disease with stage 1 through stage 4 chronic kidney disease, or unspecified chronic kidney disease; N18.9 Chronic kidney disease, unspecified; D63.8 Anemia in other chronic diseases classified elsewhere; E87.6 Hypokalemia; E55.9 Vitamin D deficiency, unspecified; I44.7 Left bundle-branch block, unspecified; Z98.42 Cataract extraction status, left eye; Z90.710 Acquired absence of both cervix and uterus; Z88.6 Allergy status to analgesic agent; Z88.0 Allergy status to penicillin; Z88.8 Allergy status to other drugs, medicaments and biological substances; Z28.21 Immunization not carried out because of patient refusal; Z79.899 Other long term (current) drug therapy
CPT/HCPCS: 10045

== ENCOUNTER 2018-05-05 20:02 | Inpatient (IN) | payer OTHER ==
[~2018-05-05] VITALS: Ht 162.6 cm; Wt 60.7 kg
--- NOTE | ~2018-05-05 | EKG ---
[place] [address] [facility] [place] [address] ELECTROCARDIOGRAM REPORT Name: HÉCTOR GURROLAGINNY Desai Room #: 419-P ADM IN M.R.#: [id number] Admission: 05/05/18 Attend Phys: Aric Cuello MD Discharge: Date of : 44 Report #: [id number] THIS REPORT FOR: //name// [facility] ED Test Date: 2018-05-05 Test Time: 20:17:01 Pat Name: LES GURROLA Department: Room: [facility] Gender: F Procurement Officer: RUTH : 1945 Requested By: Dilia Galloway Order Number: [id number] MD: Db Traore Measurements Intervals [place] Rate: 62 P: -1 VT: 152 QRS: -24 QRSD: 156 T: 95 QT: 493 QTc: 501 Interpretive Statements Sinus rhythm Left bundle branch block Compared to ECG 04/16/2018 06:34:38 No significant changes Electronically Signed On 05-06-2018 8:34:27 TRIPLE VALVE MECHANIC by Db Traore [email or web address] <ELECTRONICALLY SIGNED> By: bD Traore MD, [facility] 05/06/18 0834 16 16 Db Traore MD, [facility] /EPI
[~2018-05-05 20:02] MED LIST changes: +ACCUPRIL40 MG PO; +CIPRO500 MG PO; +NAMENDA 10 MG T10 MG PO; +SEROQUEL 25 MG25 M1 PO
[2018-05-05 20:03] VITALS: BP 184/82
[2018-05-05] MEDS ORDERED: ACCUPRIL40 MG PO (20:22)
[2018-05-05] MEDS ORDERED: TYLOPHEN500 MG PO (20:24)
[2018-05-05] MEDS ORDERED: SEROQUEL 25 MG25 M1 PO (20:29)
[2018-05-05] MEDS ORDERED: ERGOCALCIF50000 UNIT PO (20:30)
[2018-05-05 20:39] LABS: ABSOLUTE NEUTROPHILS 9.3 thou/uL (1.4-8.2); BASOPHILS 0.2 % (0.0-2.0); EOSINOPHILS 0.3 % (0.0-3.0); HEMATOCRIT 24.9 % (37.0-47.0); HEMOGLOBIN 8.5 gm/dL (12.0-15.0); LYMPHOCYTES 10.5 % (24.0-44.0); MCH 33.4 pg (26.0-34.0); MCHC 34.3 g/dL (28.0-37.0); MCV 97.5 fL (80.0-100.0); MONOCYTES 11.8 % (1.0-8.0); PLATELET COUNT 148 thou/uL (150-400); POLYS 77.2 % (36.0-66.0); RBC 2.56 mil/uL (4.20-5.00); RDW 12.9 % (10.5-14.5); WBC 12.1 thou/uL (4.0-11.0)
[2018-05-05 20:47] LABS: URINE BILIRUBIN NEGATIVE (Negative); URINE BLOOD NEGATIVE (Negative); URINE CLARITY CLEAR; URINE COLOR YELLOW; URINE GLUCOSE-RANDOM* NEGATIVE (Negative); URINE KETONES NEGATIVE (Negative); URINE LEUKOCYTES-REFLEX NEGATIVE (Negative); URINE NITRITE-REFLEX NEGATIVE (Negative); URINE PROTEIN (DIPSTICK) 2+ (Negative); URINE SPECIFIC GRAVITY 1.015 (1.005-1.035); URINE UROBILINOGEN 0.2 E.U./dl (0.2-1.0)
[2018-05-05 20:48] LABS: CREATININE 2.6 mg/dL (0.6-1.0); POTASSIUM 3.1 mmol/L (3.5-5.1)
[2018-05-05 21:03] LABS: BACTERIA-REFLEX 1-9 Few /HPF (None Seen); CASTS None Seen /LPF (None Seen); CRYSTALS None Seen /LPF (None Seen); SQUAMOUS 0-3 Few /LPF (0-3); URINE RBC None Seen /HPF (0-2); URINE WBC-REFLEX 0-5 Rare /HPF (0-5)
[2018-05-05] MEDS ORDERED: COZAAR 25 MG TA25 M1 PO (21:09)
[2018-05-05] MEDS ORDERED: NITRO-BID1 GM TOP (21:11)
[2018-05-05 22:57] VITALS: BP 167/70
[2018-05-05 23:25] VITALS: BP 189/79
[2018-05-06 05:10] VITALS: BP 176/76
[2018-05-06 06:00] LABS: HEMATOCRIT 22.9 % (37.0-47.0); MCH 34.3 pg (26.0-34.0); MCHC 34.9 g/dL (28.0-37.0); MCV 98.3 fL (80.0-100.0); RBC 2.33 mil/uL (4.20-5.00); RDW 12.8 % (10.5-14.5); WBC 9.7 thou/uL (4.0-11.0)
[2018-05-06 06:13] LABS: CALCIUM 8.7 mg/dL (8.5-10.1); CREATININE 2.3 mg/dL (0.6-1.0); POTASSIUM 3.5 mmol/L (3.5-5.1)
[2018-05-06 11:06] VITALS: BP 140/65
[2018-05-06 11:10] VITALS: BP 140/65
[2018-05-06 15:58] VITALS: BP 162/67
[2018-05-06 20:11] VITALS: BP 163/83
[2018-05-07 05:25] VITALS: BP 183/97
[2018-05-07 05:42] LABS: HEMATOCRIT 24.4 % (37.0-47.0); HEMOGLOBIN 8.4 gm/dL (12.0-15.0); MCH 34.1 pg (26.0-34.0); MCHC 34.5 g/dL (28.0-37.0); MCV 98.7 fL (80.0-100.0); RBC 2.47 mil/uL (4.20-5.00); RDW 12.9 % (10.5-14.5); WBC 9.4 thou/uL (4.0-11.0)
[2018-05-07 06:12] LABS: ALBUMIN 2.8 g/dL (3.4-5.0); CALCIUM 8.4 mg/dL (8.5-10.1); POTASSIUM 3.8 mmol/L (3.5-5.1)
[2018-05-07 08:08] VITALS: BP 177/80
[2018-05-07 12:57] VITALS: BP 174/75
[2018-05-07 17:12] VITALS: BP 204/107
[2018-05-07 21:59] VITALS: BP 187/89
[2018-05-08] VITALS (8 sets, daily range): BP systolic 150–185; BP diastolic 71–95
[2018-05-08 05:10] LABS: OBSERVED RETIC COUNT 2.98 % (0.6-2.6)
[2018-05-08 05:15] LABS: CALCIUM 8.8 mg/dL (8.5-10.1); CREATININE 1.8 mg/dL (0.6-1.0); MAGNESIUM 1.8 mg/dL (1.8-2.4); POTASSIUM 3.1 mmol/L (3.5-5.1)
[2018-05-08 05:26] LABS: % SATURATION 12 % (20-39); IRON 23 ug/dL (50-170); TIBC 185 ug/dL (250-450)
== END 2018-05-08 18:06 | disposition home or self-care (01) | DRG 682 ==
LOC: ER 20:02 → EROBS 22:26 → 4E 22:26 → ENTRNSPT 05-08 17:59 → 4E 05-08 18:06
PROVIDERS: Emergency Medicine; Hospitalist; Nurse Practitioner Acute Care; Nurse Practitioner Family
DX: N17.9 Acute kidney failure, unspecified (principal); E43 Unspecified severe protein-calorie malnutrition; I42.9 Cardiomyopathy, unspecified; F03.90 Unspecified dementia, unspecified severity, without behavioral disturbance, psychotic disturbance, mood disturbance, and anxiety; N18.9 Chronic kidney disease, unspecified; D63.8 Anemia in other chronic diseases classified elsewhere; E55.9 Vitamin D deficiency, unspecified; I12.9 Hypertensive chronic kidney disease with stage 1 through stage 4 chronic kidney disease, or unspecified chronic kidney disease; E11.22 Type 2 diabetes mellitus with diabetic chronic kidney disease; I44.7 Left bundle-branch block, unspecified; E86.0 Dehydration; Z98.42 Cataract extraction status, left eye; Z90.710 Acquired absence of both cervix and uterus; Z88.6 Allergy status to analgesic agent; Z88.0 Allergy status to penicillin; Z88.8 Allergy status to other drugs, medicaments and biological substances
CPT/HCPCS: 10084

== ENCOUNTER 2018-06-29 19:10 | Inpatient (IN) | payer OTHER ==
[~2018-06-29] VITALS: Ht 160 cm; Wt 57.2 kg
[~2018-06-29 19:10] MED LIST changes: +COZAAR 25 MG TA25 M1 PO; +TYLOPHEN500 MG PO
[2018-06-29 19:14] VITALS: BP 187/80
[2018-06-29 20:02] LABS: ABSOLUTE NEUTROPHILS 3.5 thou/uL (1.4-8.2); BASOPHILS 0.7 % (0.0-2.0); EOSINOPHILS 2.2 % (0.0-3.0); HEMATOCRIT 27.8 % (37.0-47.0); HEMOGLOBIN 9.4 gm/dL (12.0-15.0); MCH 32.9 pg (26.0-34.0); MCHC 33.9 g/dL (28.0-37.0); MCV 97.1 fL (80.0-100.0); MONOCYTES 8.2 % (1.0-8.0); PLATELET COUNT 194 thou/uL (150-400); POLYS 63.9 % (36.0-66.0); RBC 2.86 mil/uL (4.20-5.00); RDW 13.2 % (10.5-14.5); WBC 5.5 thou/uL (4.0-11.0)
[2018-06-29 20:12] LABS: ANION GAP 11 mmol/L (7-16); BUN 36 mg/dL (7-18); CHLORIDE 104 mmol/L (98-107); CO2 27 mmol/L (21-32); CREATININE 2.2 mg/dL (0.6-1.0); GLUCOSE 89 mg/dL (74-106); POTASSIUM 3.7 mmol/L (3.5-5.1); SODIUM 142 mmol/L (136-145)
[2018-06-29 20:21] LABS: ALBUMIN 3.4 g/dL (3.4-5.0); SGOT 25 U/L (15-37); SGPT 25 U/L (30-65); TOTAL BILIRUBIN 0.4 mg/dL (<0.1-1.0); TOTAL PROTEIN 7.9 g/dL (6.4-8.2); TROPONIN-I <0.06 ng/mL (<0.06)
[2018-06-29 22:26] LABS: URINE BILIRUBIN NEGATIVE (Negative); URINE BLOOD TRACE (Negative); URINE CLARITY CLEAR; URINE COLOR YELLOW; URINE GLUCOSE-RANDOM* NEGATIVE (Negative); URINE KETONES NEGATIVE (Negative); URINE LEUKOCYTES-REFLEX NEGATIVE (Negative); URINE NITRITE-REFLEX NEGATIVE (Negative); URINE PROTEIN (DIPSTICK) 1+ (Negative); URINE UROBILINOGEN 0.2 E.U./dl (0.2-1.0)
[2018-06-29 22:53] VITALS: BP 174/81
[2018-06-29 23:15] VITALS: BP 176/86
[2018-06-29] MEDS ORDERED: HYDRALAZINE 10M10 MG PO (23:31)
[2018-06-29] MEDS ORDERED: ACCUPRIL40 MG PO (23:31)
[2018-06-30 03:17] VITALS: BP 162/74
--- NOTE | 2018-06-30 04:49 | NUR ---
Received pt from ED at 0045. Pt seems to be anxious, always worried about her daughter. Gave her some Zoloft seemed to have worked temporarily. Pt has no skin issues. Shes seems to walk fine but her gait is unsteady. Gave her hydralazine one time for elevated BP. Pt denies chest pain. No skin issue. She is still experiencing moments of dizziness. She is Sinus Rhythm on TELE. No identified needs at the moment. Will continue to monitor.
[2018-06-30 06:23] LABS: CALCIUM 9.3 mg/dL (8.5-10.1)
[2018-06-30 08:00] VITALS: BP 182/88
--- NOTE | 2018-06-30 08:41 | EKG ---
[place] [address] [facility] [place] [address] ELECTROCARDIOGRAM REPORT Name: LES GURROLA Room #: 454-P ADM IN M.R.#: [id number] Admission: 06/29/18 Attend Phys: Jose D Rincon MD Discharge: Date of : 43 Report #: [id number] THIS REPORT FOR: //name// [facility] ED Test Date: 2018-06-29 Test Time: 20:02:30 Pat Name: LES GURROLA Department: Room: [facility] Gender: F Broadcast Correspondent: MILES : 1945 Requested By: Bev Tripp Order Number: [id number] MD: Db Traore Measurements Intervals [place] Rate: 58 P: -34 NE: 151 QRS: -26 QRSD: 150 T: 62 QT: 523 QTc: 514 Interpretive Statements Sinus rhythm Left bundle branch block Compared to ECG 05/05/2018 20:17:01 No significant changes Electronically Signed On 06-30-2018 8:41:26 PUBLIC RELATIONS ACCOUNT EXECUTIVE by Db Traore [email or web address] <ELECTRONICALLY SIGNED> By: Db Traore MD, [facility] 06/30/18840 01 01 Db Traore MD, FAC /EPI
[2018-06-30 10:30] VITALS: BP 195/93
[2018-06-30 10:58] VITALS: BP 188/91
--- NOTE | 2018-06-30 14:05 | NUR ---
PT ADMITTED RELATED TO DIZZINESS. CM REVIEWED CHART AND SPOKE WITH CARE TEAM. THEY INDICATED PT WAS CONFUSED. 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 PT HAD BEEN INDEPENDENT WITH GAIT CYBERATHLETE AND DTR HAD ASSISTED WITH ADLS. PT'S DTR WORKS OUTSIDE OF THE HOUSE AND CALLS TO CHECK ON PT THROUGHOUT THE DAY. PT HAS BAR IN BATHROOM, SHOWER CHAIR, AND FWW TO ASSIST WITH MOBILITY. DTR INDICATED PT HAD HH IN THE PAST AND THAT THEY HAD GOME THROUGH THE PROCESS OF GETTING HCBS BUT SHE DOESN'T WANT STRANGERS COMING INTO THE HOME. DTR INDICTED THAT MOM IS ON WAITING LIST FOR A FACILITY IN [facility] BUT CAN'T RECALL THE NAME. SHE IS RECEPTIVE TO POST ACUTE CARE STAY IF NEEDED UPON DC. CM TO FOLLOW INDICATED WITH DC PLANNING.
[2018-06-30 15:00] VITALS: BP 158/81
--- NOTE | 2018-06-30 15:04 | NUR ---
ASSUMED PT CARE AT 0645. PT WAS SLEEPING AT THIS TIME. UPON MORNING MED PASS PT WAS TEARY AND UPSET. SHE SPOKE WITH DAUGHTER ON THE PHONE AND CALMED DOWN. LATER ON SHE HAD ANOTHER UPSET EPDISODE WITH IN THE ROOM. HER BP WAS ELEVATED AND HE WANTED A DOSE OF COREG TO BE GIVEN. DAUGHTER WILL BE HERE SHORTLY, TO HELP SUPERVISE. WILL CONTINUE TO NERIS.
[2018-06-30 19:44] VITALS: BP 169/104
--- NOTE | 2018-06-30 20:44 | NUR ---
Pt very agitated, IM med given per order. Pt refused PO meds tonight. See eMAR for PO meds wasted. No IV access since previous day shift.
[2018-07-01 03:25] VITALS: BP 169/69
--- NOTE | 2018-07-01 06:28 | NUR ---
Pt a/o to self, confused. From time to time, pt irritable, confused, agitated, trying to get out of bed. SR/SB. Stable. Frequent reality orientation provided. Bed alarm on. Fall precautions maintained. Call light with reach. Will continue to monitor.
[2018-07-01 07:53] VITALS: BP 171/79
--- NOTE | 2018-07-01 13:05 | NUR ---
dp [facility]. DP will call to ensure delivery of fax.
--- NOTE | 2018-07-01 13:47 | NUR ---
CM ASKED DC RETICLE PRINTER TO FAX REFERRAL TO [facility] BUT WE ARE AWAITING THERAPY EVALS. CM TO FOLLOW INDICATED IN FINDING SKILLED PLACEMENT.
[2018-07-01 15:30] VITALS: BP 156/67
--- NOTE | 2018-07-01 18:10 | NUR ---
ALERT TO SELF, VSS, DENIES PAIN, FIGGITY, IMPULSIVE,PULLS OFF PROTECTIVE WRAP ON IV, REQUIRES FEQUENT RE-ORRIENTATION PT SAT NURSES STATION FOR LUNCH TRHOUGH DINNER, GIVEN TOWELS TO FOLD, GOES THROUGH HER BAG OF BELONGINGS.COMPLAINT WITH MEDICATIONS. REMAINS IMPLUSIVE AND FIGGITY AFTER GIVEN QUIETIAPINE. ON FALL PRECAUTIONS, MOVED CLOSER TO NURSES STATIONS. DOES NOT USE CALL LIGHT APPROPREATELY, STAFF TO ANTICIPATE NEEDS, CALL LIGHT IN REACH WHEN IS HER ROOM. CURRENTLY AT NURSES STATION FOR OVERSIGHT.
[2018-07-02 04:00] VITALS: BP 176/78
[2018-07-02 06:06] LABS: HEMATOCRIT 25.7 % (37.0-47.0); MCH 33.6 pg (26.0-34.0); MCHC 35.2 g/dL (28.0-37.0); MCV 95.5 fL (80.0-100.0); RBC 2.69 mil/uL (4.20-5.00); RDW 13.4 % (10.5-14.5); WBC 6.1 thou/uL (4.0-11.0)
--- NOTE | 2018-07-02 06:18 | NUR ---
patient very anxious, restless, asking multiple questions, and attempting to get out of chair/bed without assist. did respond well to extra time spent talking with her, watching TV. received scheduled dose of Depakote. cooperative with taking medication sprinkled over applesauce for her. slept thru night.
[2018-07-02 06:22] LABS: CALCIUM 9.1 mg/dL (8.5-10.1); CREATININE 2.5 mg/dL (0.6-1.0); MAGNESIUM 2.5 mg/dL (1.8-2.4); POTASSIUM 3.4 mmol/L (3.5-5.1)
--- NOTE | 2018-07-02 12:34 | NUR ---
DISCHARGE PLANNING. ANTICIPATED DISCHARGE TO [facility] ONCE INSURANCE AUTH OBTAINED. PT AND OT ASSESSEMENTS FAXED TO [facility], VERIFIED RECEIVED. FOLLOWING TO ASSIST.
[2018-07-02 13:50] VITALS: BP 176/72
--- NOTE | 2018-07-02 17:44 | NUR ---
Pt vs stable through out the shift. Pt is sitll very confused and would cry at times. Kept pt at the nurses station kept busy by letting her fold towels and fix some papers. Frequent reorientation needed through out the day. All oral medication taken, diets is well tolerated. No other issues verbalized or identified.
[2018-07-02 19:59] VITALS: BP 194/80
[2018-07-03 04:52] VITALS: BP 176/80
[2018-07-03 05:37] LABS: CALCIUM 8.8 mg/dL (8.5-10.1); CREATININE 2.4 mg/dL (0.6-1.0); MAGNESIUM 2.3 mg/dL (1.8-2.4); POTASSIUM 3.6 mmol/L (3.5-5.1)
--- NOTE | 2018-07-03 06:05 | NUR ---
PT AWAKE AND ALERT TO SELF AT BEGINNING OF THE SHIFT. VERY PLEASANT, ALTHOUGH IMPULSIVE BUT IS EASILY REDIRECTIBLE. PT TOOK BEDTIME MEDS, INCLUDING PRN DOSE OF ZYPREXA THEN SLEPT THE WHOLE NIGHT ONLY WAKING TO URINATE A COUPLE TIMES. PROGRESSING TOWARDS MEETING GOALS.
[2018-07-03 08:09] VITALS: BP 184/86
[2018-07-03] MEDS ORDERED: DEPAKOTE SPRIN125 MG PO (11:57)
[2018-07-03] MEDS ORDERED: AMLODIPINE BESYL5 M1 PO (11:57)
--- NOTE | 2018-07-03 14:05 | NUR ---
DCP FAXED REFERRAL TO [facility] SPOKE WITH OSVALDO IN ADM. SHE RECEIVED REFERRAL AND WILL REVIEW. FAXED REFERRAL TO [facility] SPOKE WITH SAHIL IN ADM. SHE WILL REVIEW REFERRAL IN THE AM SHE IS OUT OF OFFICE TODAY. DCP TO FOLLOW.
[2018-07-03 14:50] VITALS: BP 182/81
--- NOTE | 2018-07-03 15:19 | NUR ---
CM SPOKEW IHT BUTCH AT [facility] AND THEY INDICATED THEY COULD NOT ACCEPT PT. CM CALLED PT'S DTR AND INDICATED THAT ABOVE AND ASKED WHERE ELSE SHE WANTED REFERRALS SENT. SHE STATED THAT REFERRALS COULD BE SENT TO [facility] AND [facility]. [facility] SAID THEY DIDN'T HAVE BEDS. REFERRALS ALSO SENT TO [facility] AND [facility] CM TO FOLLOW INDICATED WITH DC PLANNING.
--- NOTE | 2018-07-03 15:52 | NUR ---
FA[place]ED [facility]FERRAL [place] [facility] [place] ADM. LIASON OF REFERRAL AND ANTICIPATE DC SOON. FAXED REFERRAL [place] [facility] [place] SELINA TO REVIEW REFERRAL AND ANTICIPATE DC SOON. DCP TO FOLLOW.
--- NOTE | 2018-07-03 18:32 | NUR ---
A/OX1, PLEASANT, DENIES PAIN. IMPLUSIVE AND FIGGITY, FREQUENT RE-ORRIENTATION, ON FALL PRECAUTIONS, STAND BY ASSIST. PLANS TO DC ONCE PLACEMENT TO LTC. PT UNABLE TO DEMONSTRATE HOW TO USE CALL LIGHT.STAFF TO ANITICIPATE NEEDS. POSSIBLE DC TOMORROW.
[2018-07-03 19:45] VITALS: BP 150/79
[2018-07-04 05:18] VITALS: BP 143/64
[2018-07-04 08:00] VITALS: BP 149/61
[2018-07-04 09:06] VITALS: BP 149/61
--- NOTE | 2018-07-04 10:39 | NUR ---
PT HAD BEEN ACCE[place] [facility] [place] CHART COPY MADE AND ORDERS TO BE FAXED. CM NOTIFIED PT'S DTR STACY SHE IS AGREEABLE AND WILL ARRIVE AT 12:45 TO BE PRESENT FOR TRANSPORT. REPORT TO BE CALLED TO . NO OTHER CM INTERVENTION INDICATED AT THIS TIME. CASE CLOSED.
--- NOTE | 2018-07-04 11:41 | NUR ---
FAXED DC ORDERS/SUMMARY TO [facility] SPOKE WITH SELINA IN ADM. SHE RECEIVED DC ORDERS AND ARRANGED TRANSPORT VIA [facility] FOR 1400 TODAY. FAMILY NOTIFIED PER AND UNIT NOTIFIED. CHART COPY PER US. RN TO CALL REPORT TO [phone].
--- NOTE | 2018-07-04 12:11 | NUR ---
ASSUMED PATIENT CARE AT 0715. PATIENT SLEEPING AT THAT TIME. AWAKENED FOR BREAKFAST AND SAT IN CHAIR TO EAT. NEEDS MODERATE ASSISTANCE WITH TRANSFER TO CHAIR. ALERT TO PERSON AND . FORGETFUL AND CONFUSED AT TIMES. FORGETS TO CALL FOR ASSISTANCE TO BSC. REMAINS IMPULSIVE. FALL PRECAUTIONS IN PLACE. TOLERATING DIET WELL. PLAN IS TO DISCHARGE TO [facility] TODAY AT 1400. TEARFUL AT TIMES. CALLED AND LET HER TALK TO HER DTR AND SHE FELT BETTER AFTER THAT. HAVE MONITORED CLOSELY.
== END 2018-07-04 14:50 | DRG 682 ==
LOC: ER 19:10 → 4W 22:43 → EROBS 22:43 → 4W 23:18
PROVIDERS: Internal Medicine; Nurse Practitioner Family; Student in an Organized Health Care Education/Training Program; ADMIT Internal Medicine
DX: N17.9 Acute kidney failure, unspecified (principal); E43 Unspecified severe protein-calorie malnutrition; I42.9 Cardiomyopathy, unspecified; F03.91 Unspecified dementia, unspecified severity, with behavioral disturbance; I16.0 Hypertensive urgency; D63.8 Anemia in other chronic diseases classified elsewhere; F41.9 Anxiety disorder, unspecified; F03.90 Unspecified dementia, unspecified severity, without behavioral disturbance, psychotic disturbance, mood disturbance, and anxiety; E11.22 Type 2 diabetes mellitus with diabetic chronic kidney disease; N18.3 Chronic kidney disease, stage 3 (moderate); I12.9 Hypertensive chronic kidney disease with stage 1 through stage 4 chronic kidney disease, or unspecified chronic kidney disease; M62.84 Sarcopenia; E55.9 Vitamin D deficiency, unspecified; K59.00 Constipation, unspecified; Z98.49 Cataract extraction status, unspecified eye; Z90.710 Acquired absence of both cervix and uterus; Z88.6 Allergy status to analgesic agent; Z88.0 Allergy status to penicillin; Z88.8 Allergy status to other drugs, medicaments and biological substances; Z91.81 History of falling; Z79.899 Other long term (current) drug therapy
CPT/HCPCS: 10045; 10047

== ENCOUNTER 2018-09-26 17:34 | Inpatient (IN) | payer OTHER ==
[~2018-09-26] VITALS: Ht 152.4 cm; Wt 62.0 kg
[~2018-09-26 17:34] MED LIST changes: +AMLODIPINE BESYL5 M1 PO; +DEPAKOTE SPRIN125 MG PO
[2018-09-26 17:50] VITALS: BP 176/84
[2018-09-26 19:29] LABS: HEMATOCRIT 30.1 % (37.0-47.0); HEMOGLOBIN 10.4 gm/dL (12.0-15.0); MCH 33.4 pg (26.0-34.0); MCHC 34.4 g/dL (28.0-37.0); RBC 3.1 mil/uL (4.20-5.00); RDW 13.4 % (10.5-14.5); WBC 10.3 thou/uL (4.0-11.0)
[2018-09-26 19:38] LABS: POTASSIUM 3.2 mmol/L (3.5-5.1)
[2018-09-26 19:43] LABS: ALBUMIN 3.3 g/dL (3.4-5.0); TOTAL BILIRUBIN 0.8 mg/dL (<0.1-1.0); TOTAL PROTEIN 8.5 g/dL (6.4-8.2)
[2018-09-26 20:03] LABS: URINE BILIRUBIN NEGATIVE (Negative); URINE BLOOD 2+ (Negative); URINE CLARITY CLEAR; URINE COLOR YELLOW; URINE GLUCOSE-RANDOM* NEGATIVE (Negative); URINE KETONES NEGATIVE (Negative); URINE LEUKOCYTES-REFLEX NEGATIVE (Negative); URINE NITRITE-REFLEX NEGATIVE (Negative); URINE PROTEIN (DIPSTICK) 3+ (Negative); URINE UROBILINOGEN 0.2 E.U./dl (0.2-1.0)
[2018-09-26 20:16] LABS: SQUAMOUS 0-3 Few /LPF (0-3); URINE WBC-REFLEX 0-5 Rare /HPF (0-5)
[2018-09-26 20:17] LABS: AMORPHOUS URATES Moderate /LPF (None Seen); BACTERIA-REFLEX 1-9 Few /HPF (None Seen); URINE RBC 3-10 Few /HPF (0-2)
[2018-09-26 20:18] LABS: CASTS None Seen /LPF (None Seen); MUCUS 0-3 Light strn/LPF (None Seen)
[2018-09-26 21:07] VITALS: BP 121/76
[2018-09-26 21:50] VITALS: BP 135/67
[2018-09-26 22:05] VITALS: BP 156/69
[2018-09-27] MEDS ORDERED: MELATONIN3 MG PO (03:33)
[2018-09-27] MEDS ORDERED: VITAMIN D5000 UNIT PO (03:33)
[2018-09-27] MEDS ORDERED: TRAZODONE HCL50 MG PO (03:33)
[2018-09-27] MEDS ORDERED: CLONIDINE HCL0.2 M2 PO (03:35)
[2018-09-27 03:54] VITALS: BP 146/67
[2018-09-27 05:04] LABS: CREATININE 1.6 mg/dL (0.6-1.0); MAGNESIUM 1.9 mg/dL (1.8-2.4); POTASSIUM 3.3 mmol/L (3.5-5.1)
[2018-09-27 07:30] VITALS: BP 102/55
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
--- NOTE | 2018-09-27 08:37 | NUR ---
VS 156/69 73 16 98.1 100% AWAKENED IN THE NOC AND GIVEN MEDS AND ASSESSMENT BY PRODUCTION SHIFT SUPERVISOR. CONFUSION NOTED. PLEASANT AFFECT AND EXTREMELY POLITE. WILL CONTINUE TO MONITOR.
[2018-09-27 09:11] LABS: FOLIC ACID 12.8 ng/mL (8.6-58.9); TSH 2.274 uIU/mL (0.358-3.740)
[2018-09-27 14:25] LABS: CLARITY CLOUDY; COLOR YELLOW; SOURCE KNEE JOINT; TOTAL VOLUME 105 mL
[2018-09-27 14:26] LABS: SOURCE KNEE JOINT
[2018-09-27 14:45] LABS: BF CRYSTALS No Crystals seen
[2018-09-27 14:51] LABS: BF NUCLEATED CELLS 18131; BF RBC 4846
--- NOTE | 2018-09-27 15:19 | NUR ---
PT A&0X2-3, IV INTACT IN R AC INFUSING NS AT 80/HR. R KNEE WITH NOTED SWELLING. PT IS TEARFUL AND CONFUSED AT TIMES. ORTHO CONSULTED, OMARI TRUSS ASSEMBLER ASPIRATED APPROX. 80ML CLOUDY, YELLOW GREENISH FLUID FROM KNEE AND SENT TO LAB. WILL CONT. POC.
[2018-09-27 15:42] LABS: BF MACROPHAGE 19; BF NEUTROPHILS 81
--- NOTE | 2018-09-27 16:07 | NUR ---
PT TRANSFERED TO 226.
[2018-09-27 16:18] VITALS: BP 154/76
--- NOTE | 2018-09-27 17:04 | NUR ---
PATIENT WAS TRANSFERED TO SENIOR SUITES AT 1600.PATIENT IS ALERT AND ORIENTED TO SELF.PATIENT WAS GIVEN CALL LIGHT AND MADE COMFORTABLE IN BED.PT IS A MAX X2 ASSIST.PATIENT IS INCONTIENT OF BOWEL AND BLADDER.CALL LIGHT, PHONE, AND PERSONAL BELONGINGS ARE WITHIN REACH.
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
[2018-09-27 19:28] VITALS: BP 134/68
--- NOTE | 2018-09-28 04:05 | NUR ---
ASSUMED CARE OF PATIENT AT 1899. VSS. ASSESSMENT COMPLETED AT 2050 AND IS DOCUMENTED. PT ALERT AND ORIENTED TO PERSON ONLY; PLEASANTLY CONFUSED. PT DOES NOT USE CALL LIGHT AND IS INCONTINENT OF BOWEL AND BLADDER; FREQUENTLY ROUNDED ON THROUGHOUT THE NIGHT. HS BLOOD GLUCOSE: 83; NO COVERAGE INSULIN NEEDED/GIVEN. RIGHT AC IV HEP LOCKED. DAUGHTER WAS IN ROOM VISITING THIS EVENING. BOTH KNEES REMAIN SWOLLEN ACCORDING TO DAUGHTER. PT CURRENTLY SLEEPING SOUNDLY IN BED IN NO ACUTE DISTRESS. BED LOCKED AND IN LOWEST POSITION. CALL LIGHT WITHIN REACH. [facility].
--- NOTE | 2018-09-28 05:31 | NUR ---
THIS NURSE AGREES WITH ASSESSMENT AND NOTES BY COPYRIGHT MANAGER ON THIS PATIENT.
[2018-09-28 06:13] LABS: ABSOLUTE NEUTROPHILS 4.5 thou/uL (1.4-8.2); BASOPHILS 0.5 % (0.0-2.0); EOSINOPHILS 1.3 % (0.0-3.0); HEMATOCRIT 25.6 % (37.0-47.0); HEMOGLOBIN 8.9 gm/dL (12.0-15.0); LYMPHOCYTES 17.7 % (24.0-44.0); MCH 33.5 pg (26.0-34.0); MCHC 34.5 g/dL (28.0-37.0); MCV 97.1 fL (80.0-100.0); PLATELET COUNT 206 thou/uL (150-400); POLYS 71.5 % (36.0-66.0); RBC 2.64 mil/uL (4.20-5.00); RDW 13.4 % (10.5-14.5); WBC 6.3 thou/uL (4.0-11.0)
[2018-09-28 06:21] LABS: CALCIUM 8.9 mg/dL (8.5-10.1); CREATININE 1.8 mg/dL (0.6-1.0); POTASSIUM 3.6 mmol/L (3.5-5.1)
[2018-09-28 08:10] VITALS: BP 116/60
--- NOTE | 2018-09-28 12:27 | NUR ---
ASSUMED PATIENT AND CARES AT 0715, PATIENT INITIALLY IN BED ASLEEP, QUICKLY WOKE UP AND ATTEMPTING TO GET OUT BED, PATIENT CRIES AND YELLS OUT LOUD, NURSE OFFERED THE BATHROOM AND PATIENT WITH ASSIST X2 UP TO BSC, CLEAR YELLOW URINE NOTED, PATIENT A&OX1 SELF AND FAMILY ONLY, CRIES OUT IN PAIN WITH MOVEMENT AND AT TIMES TOUCH, UNABLE TO RATE PAIN, RAC HEP LOCK INTACT, FALL PRECAUTIONS IN PLACE, PERSONAL BELONGINGS AND CALL LIGHT IN REACH, WILL CONTINUE TO MONITOR
--- NOTE | 2018-09-28 18:12 | NUR ---
I AGREE WITH NURSING ASSESSMENT DONE BY ALFREDITO/ELIA AND NURSING NOTE.
[2018-09-28 19:30] VITALS: BP 148/82
--- NOTE | 2018-09-29 04:40 | NUR ---
ASSUMED CARE OF PATIENT AT 1900. VSS. ASSESSMENT COMPLETED AT 1958 AND IS DOCUMENTED. PT UP IN RECLINER AT SHIFT CHANGE; TRANSFERRED TO BED WITH MAX ASSIST AT 2044. PT VERY SAD, TEARFUL, AND IMPULSIVE THIS SHIFT. PT HAS ATTEMPTED TO GET OUT OF BED UNASSISTED SEVERAL TIMES; ALL 4 SIDE RAILS UP, BED ALARM ON. PT DOES NOT CALL OUT APPROPRIATELY. RIGHT AC IV PATENT AND HEPARIN LOCKED. HS BLOOD SUGAR: 107; NO COVERAGE INSULIN GIVEN. PT CURRENTLY RESTING QUIETLY IN BED IN NO ACUTE DISTRESS. BED LOCKED, IN LOWEST POSITION, AND ARMED AT THIS TIME. CALL LIGHT WITHIN REACH. TM.
--- NOTE | 2018-09-29 04:52 | NUR ---
THIS NURSE AGREES WITH ASSESSMENT AND NOTES BY LEAD PYTHON DEVELOPER ON THIS PATIENT.
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
--- NOTE | 2018-09-29 12:44 | NUR ---
christine faxing initial referral to christine Moody called facility and found out patient was previously intermediate care at facility. DP requesting if facility wants patient to go skilled upon dc from hospital. Patient dc likely today or tomorrow.
--- NOTE | 2018-09-29 14:04 | NUR ---
INITIAL ASSESSMENT: SW reviewed chart and spoke with nursing and attending physician. Pt was admitted from [facility] due to debility, knee effusion, UTI. Pt had right knee aspiration due to pain. SW spoke with pt's dtr, Kaci, via phone to provide update and discuss discharge plan. Pt's dtr states that when she went to see pt on Saturday, pt was not acting like herself. Pt's dtr requested medication list to see what pt had been given. Pt's dtr was unhappy with the staff and brought pt to the ER. Pt's dtr states that pt will not be returning to [facility]. SW discussed additional options for placement. Pt's dtr states there are not any more options for placement, as she has checked with the facilities that are close to her home. All are unable to accept pt. SW offered to send referrals to other facilities. Pt's dtr declines offer and states that pt will be coming home with her at time of discharge. SW offered to have [facility] carlotaal pt to see if they would be able to accept pt for rehab, prior to her returning home with . Pt's dtr is agreeable with [facility] eval. Pt's dtr also states that she did inquire with [facility] for additional assistance with community resources and referrals. Per pt's dtr, [facility] gave her a list of facilities. Pt has used [facility] in the past for HH services. Pt's dtr requests to use an alternate HH agency. Options provided. No preference voiced. Pt's PCP is Dr. Gina Levine. supervisor of operations to send referral to [facility], who also is able to provide in-home services for [place]. SW discussed case with [facility] rehabilitation medicine physician. SW updated attending physician. supervisor of operations notified [facility], that pt would not be returning. SW is following to assist as needed with discharge planning.
[2018-09-29 17:40] VITALS: BP 154/75
[2018-09-29 20:23] VITALS: BP 159/85
--- NOTE | 2018-09-30 05:29 | NUR ---
Assumed pt care at 1900.Pt alert to self only,able to tell dtrs name.Pt very impulsive at the beginning of shift kept trying to get up from chair/bed several times looking for dtr as well. Pt requires mod/max assist with transfers. Voiding in BSC at night,no c/o dysuria. Fall precautions implemented. Pt resting quietly at this time with eyes closed no distress noted will continue to monitor.
[2018-09-30 06:09] LABS: HEMATOCRIT 23.8 % (37.0-47.0); HEMOGLOBIN 8.3 gm/dL (12.0-15.0); MCH 33.3 pg (26.0-34.0); MCHC 34.7 g/dL (28.0-37.0); MCV 96.1 fL (80.0-100.0); RBC 2.48 mil/uL (4.20-5.00); RDW 13.3 % (10.5-14.5); WBC 4.5 thou/uL (4.0-11.0)
[2018-09-30 06:34] LABS: CALCIUM 8.8 mg/dL (8.5-10.1); CREATININE 1.9 mg/dL (0.6-1.0); POTASSIUM 4.1 mmol/L (3.5-5.1)
[2018-09-30 08:43] VITALS: BP 149/67
--- NOTE | 2018-09-30 13:34 | NUR ---
SW reviewed chart and spoke with nursing and attending physician. Psych consult ordered today to evaluate pt. Pt with periods of being impulsive and agitated. [facility] consulted and awaiting input from [facility] at this time. Referral sent to [facility] yesterday. ANNE spoke with Alyssa at [facility], who states they can accept pt on service when she is ready. However, they would not be able to start care until early next week. ANNE is following to assist as needed with discharge planning.
--- NOTE | 2018-09-30 14:53 | NUR ---
PATIENT SEEN BY JACY MOSHER NP WITH DR. HAYNES, FOR ACUTE REHAB CONSULT. PATIENT IS NOT APPROPRIATE FOR ACUTE REHAB STAY. PATIENT WITH ADVANCED DEMENTIA AND DOES NOT MEET [facility]. THANK YOU FOR THIS REFERRAL.
--- NOTE | 2018-09-30 17:32 | NUR ---
ASSUMED CARE OF PATIENT THIS MORNING. PATIENT HAS BEEN ALERT TO SELF WITH CONFUSION. SHE BECAME AGITATED AND IMPULSIVE THIS MORNING AND THE PHYSICIAN WAS CONTACTED AND SHE WAS GIVEN A DOSE OF ATIVAN. SHE REFUSED HER MORNING MEDICATIONS. SHE IS DIABETIC AND BLOOD SUGAR WAS CHECKED AND NO INSULIN WAS INDICATED. FALL PRECAUTIONS ARE IN PLACE.
--- NOTE | 2018-09-30 18:34 | NUR ---
DR WILCOX NOTIFIED DUE TO PATIENT BEING AGITATED WITH MORE CONFUSION, AND INAPPROPIATE VERBAL RESPONSES, RECEIVED ORDER FOR LORAZEPAM 0.5MG IV NOW AND LORAZEPAM 0.5 EVERY 4 HOURS. MEDICATION WAS GIVEN AND PATIENT WENT TO SLEEP, SHE RESTED WELL, AND WOKE UP HAD HER LUNCH AND REMAINS CALM, DAUGHTER PRESENT THIS EVENING AT BEDSIDE.
--- NOTE | 2018-09-30 19:34 | NUR ---
I AGREE WITH NURSING ASSESSMENT DONE, AND NURSING NOTE.
[2018-09-30 20:28] VITALS: BP 164/88
--- NOTE | 2018-10-01 02:37 | NUR ---
Assumed pt care at 1900. Pt alert and oriented to self only,co-operative with cares. Denies pain on assessment. Pt gets impulsive at times and keeps trying to get out of the bed w/o assistance,bed alarm on. VSS. Pt has episodes of bladder incontinence tho sometimes she'll voice need to void. Call light/personal items within reach,hourly rounding done. Will continue to monitor pt.
[2018-10-01 07:45] VITALS: BP 169/84
--- NOTE | 2018-10-01 12:44 | NUR ---
PATIENT CARE WAS ASSUMED AT 0715.PATIENT IS ALERT AND ORIENTED TO SELF.PATIENT IS VERY CONFUSED AND CALLING FOR PEOPLE THAT ARE NOT THERE.PATIENT HAS TO BE REORIENTED TO SITUATION.PATIENT REFUSED MORNING MEDS.PATIENT STATED THAT SHE DOESN'T WANT TO TAKE MEDICATIONS FROM JUST ANYBODY, EVEN AFTER PATIENT WAS REORIENTED THAT THE NURSE IS GIVING HER MEDICATIONS AND IT IS OKAY,PATIENT STILL WOULD NOT TAKE MEDS.PATIENT IS ON FALL PRECAUTIONS, DUE TO PATIENT BEING IMPULSIVE.CALL LIGHT, PHONE AND PERSONAL BELONGINGS ARE WITHIN REACH.
--- NOTE | 2018-10-01 12:50 | NUR ---
PATIENT WAS TRANSFERED TO [facility] UNIT ROOM [facility] FROM [facility].PATIENT WAS TAKEN VIA W/C BY TRANSPORT, ALONG WITH CHART.REPORT WAS GIVEN TO NURSE.FAMILY WAS NOTIFIFED ABOUT TRANSFER.IV IS INTACT.PT HAS ALL OF HER BELONGINGS.
--- NOTE | 2018-10-01 14:35 | NUR ---
Pt was declined for [facility] referral due to aggitation and confusion. [facility] referral recommended by the attending. [facility] evaluated the pt and has accepted. Nursing spoke with the pt's dtr/keri Clemons to updated. She was agreeable. CM left message should she have any questions and encouraged her to coordinate dc planning efforts with the socialworker on [facility]. [facility] updated as well. They can accept referral at dc if HH is indicated at dc.
== END 2018-10-01 12:45 | DRG 564 ==
LOC: ER 17:34 → EROBS 20:23 → SICU 20:23 → 4E 21:55 → SICU 09-27 16:05 → ENTRNSPT 10-01 12:27 → EDTRNSPTSTS 10-01 12:28 → SICU 10-01 12:45
PROVIDERS: Internal Medicine; Nurse Practitioner Acute Care; Nurse Practitioner Family; Physician Assistant; ADMIT Family Medicine
PROC: 0S9C3ZX Drainage of Right Knee Joint, Percutaneous Approach, Diagnostic (ICD-10-PCS; principal; 2018-09-27)
DX: M25.461 Effusion, right knee (principal); N17.0 Acute kidney failure with tubular necrosis; I42.9 Cardiomyopathy, unspecified; N39.0 Urinary tract infection, site not specified; F03.91 Unspecified dementia, unspecified severity, with behavioral disturbance; N18.3 Chronic kidney disease, stage 3 (moderate); D64.9 Anemia, unspecified; I44.7 Left bundle-branch block, unspecified; F41.9 Anxiety disorder, unspecified; I12.9 Hypertensive chronic kidney disease with stage 1 through stage 4 chronic kidney disease, or unspecified chronic kidney disease; E11.22 Type 2 diabetes mellitus with diabetic chronic kidney disease; E87.6 Hypokalemia; M17.11 Unilateral primary osteoarthritis, right knee; Z91.81 History of falling; Z90.710 Acquired absence of both cervix and uterus; Z79.899 Other long term (current) drug therapy; Z88.0 Allergy status to penicillin; Z88.6 Allergy status to analgesic agent
CPT/HCPCS: 10084; 15002

== ENCOUNTER 2018-10-01 12:13 | Inpatient (IN) | payer OTHER ==
[~2018-10-01] VITALS: Ht 165.1 cm; Wt 60.1 kg
[~2018-10-01 12:13] MED LIST changes: +CLONIDINE HCL0.2 M2 PO; +MELATONIN3 MG PO; +TRAZODONE HCL50 MG PO; +VITAMIN D5000 UNIT PO
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
--- NOTE | 2018-10-01 18:26 | NUR ---
ANNE met with pt daughter Kaci Marinelli who is the DPOA. Pt daughter stated that she was not notified by staff in [facility] that her mother would be moved to [facility]. Pt stated that she was disrespected by the US, and the nurse when she asked if she could brush her mother's teeth. She was denied according to the Kaci. Kaci stated that the nurse called security on her because she asked to speak with the docotr. Pt stated that she came in at 4:00pm, and waited for 30 minutes to see the doctor when the doctor did not show, she went to the nurse stattion, and asked if they could call the doctor. She was told by the nurse that she would have to be patient, and she would not be whitehead. Kaci became upset in stated that she would like to see the dcotr or she will remove her mother from the hospital. kaci mention that the US stated her mother could not leave until the doctor give permission. Security was notfied in escorted pt daughter from the unit. SW was notified by US that a patient family is need assistance. SW came out to the [place] to speak with the Kaci. ANNE was able to desclate, and validate Kaci emotions. ANNE reached out to Dr. Winchester to see if he could speak with the pt daughter cconcerning her care. Dr. Pichardo came in spoke with the pt daughter Kaci. Kaci expressed her concern which was mention above. Dr. Winchester stated that he understand her concern, and he apologize that she was not notified concerning her mother discharge from [facility]. Dr. Winchester stated that since the DPOA is not enacted than he would like to keep her mother, and evaluate her to reassure that she has safe discharge. ANNE mention thatthe DPOA is valid but not enacted by a doctor. Kaci became upset again, and stated that she will not leave here without her mother. She mention that she will call the police. Kaci asked if she could speak with another person in leadership. ANNE called Carmen (Director) was unsuccessful, and Papo (ANNE left voicemail). ANNE reached out to Amor. Amor was able to validate pt daughter concerning and spoke with her about the risk of taking her mother out AMA. Kaci stated that she understood in the treatment she recieved this evening, she does not feel safe with the nursing staff or the Dr. Winchester. SW provided the daughter with AMA document, and which she completed. SW assist with the inventory sheet. Pt daughter recieved her mother personal items. Pt and her daughter Kaci was escorted by the SHIPPING TEAM LEADER. There was no other services need by social service department.
--- NOTE | 2018-10-02 07:55 | EKG ---
[address] [address] ELECTROCARDIOGRAM REPORT Name: LES GURROLA Lloyd [facility] DIS IN M.R.#: [id number] ������������������ Admission: 10/01/18 ������������������ Attend Phys: Rod Winchester DO Discharge: 10/01/18 ������������������ Date of : 43 Report #: [id number] ����������������������������������������������������������������� [id number] THIS REPORT FOR: //name// [facility] Test Date: 2018-10-01 Test Time: 17:00:37 Pat Name: LES GURROLA Department: Room: [facility] Gender: F Medical Reimbursement Specialist: Bradly FOWLER : 1945 Requested By: Rod Winchester Order Number: [id number] MD: Db Traore Measurements Intervals [place] Rate: 71 P: 44 ME: 156 QRS: -27 QRSD: 157 T: 114 QT: 475 QTc: 517 Interpretive Statements Sinus rhythm with atrial premature complexes Probable left atrial enlargement Left bundle branch block Compared to ECG 06/29/2018 20:02:30 Atrial premature complexes now present Electronically Signed On 10-02-2018 7:55:40 CDT by Db Traore [email or web address] ��������������������������������������������� <ELECTRONICALLY SIGNED> ���������������������������������������� By: Db Traore MD, FACC ��������������������������������������������� 10/02/18 0755 1700 1700 Db Traore MD, [facility] /EPI
--- NOTE | 2018-10-02 16:46 | H ---
[facility] [place] [address] HISTORY AND PHYSICAL Name: LES GURROLA Room #: 519B-B DIS IN M.R.#: [id number] Admission: 10/01/18 ������������������ Attend Phys: Rod Winchester DO Discharge: 10/01/18 ������������������ Date of : 43 Report #: [id number] THIS REPORT FOR: //name// CC: Rod Winchester [facility] DATE OF SERVICE: 10/01/2018 ATTENDING PHYSICIAN: Rod Winchester DO MEDICAL CONSULTANTS: Yris Roberts MD REASON FOR ADMISSION: Sad, crying, hallucinations, unsafe ambulation. HISTORY OF PRESENT ILLNESS: This is a 73-year-old black female who has an advanced dementia who was admitted around on 09/26/2018 to the Hospitalist Service. She had come to the ED complaining of dizziness and pain in the right knee as well as bilateral ankle swelling. Daughter states that the pain began at [facility] where she lived from 09/03/2018 until 09/26/2018 and at that time she has fallen twice at the facility. Falls occurred on and 09/23/2018. The patient was brought up to Geriatric Psychiatry to evaluate her hallucinations. The patient is a poor historian. On interview, she tells me she is 24 years old. There are things she is concerned about, there are things she is scared of. The patient appears to have a different temporal time of reference. On occasion, she shows reality testing that she is in 2019, otherwise she was not, only oriented for person. REVIEW OF SYSTEMS: Not possible or reliable in this patient. PAST MEDICAL HISTORY: Includes acute kidney injury superimposed on chronic kidney disease, chest pain in the past, dizziness, dyspnea, facial contusion, falls, hypertension. ALLERGIES: PENICILLIN, CETIRIZINE, HYDROCODONE. Her laboratories were delineated during her medical admission. Review of medications shortly. past medical, surgical history includes eye surgery in 2001 left eye, limited vision; chronic kidney disease stage 3, diabetes mellitus, anemia, vitamin D deficiency, hysterectomy, chronic vertigo, cardiomyopathy EF 35-40%, chronic left bundle branch block, falls, anxiety, nonsmoker, nondrinker. No significant medical history. The patient had been seen by Dr. Wilkinson on the , the patient had seen Dr. Wilkinson prior in 2018. She was known to have previous diagnosis of dementia. There were no urine cultures this admission. PHYSICAL EXAMINATION: [address] [address] HISTORY AND PHYSICAL Name: LES GURROLA Room #: 519B-B [facility]#: [id number] Admission: 10/01/18 ������������������ Attend Phys: Rod Winchester, Discharge: 10/01/18 ������������������ Date of : 43 Report #: [id number] VITAL SIGNS: Done today showed BP 116/84, O2 sat 100%, pulse 53, temperature 98.6. MUSCULOSKELETAL: Abnormal gait requiring mod assist and showing frequent inappropriate use of a walker. MENTAL STATUS EXAMINATION: This is a well-developed, disheveled black female appearing older than stated age. Attention limited. Concentration limited. Speech is normal is rate. Thought process linear and limited. Thought content focused on some delusional themes of believing she is 24 years old and it was difficult to follow her line of thinking. Psychomotor agitation, no psychomotor retardation. Mood and affect congruent, constricted, irritable. Denied SI or HI. Denied auditory, visual, or tactile hallucinations. Memory not formally tested. Insight limited. Judgment limited. Fund of knowledge below average. FORMULATION: A 73-year-old black female, admitted initially voluntarily by DPOA to the Geriatric Psych Unit at [facility]. DIAGNOSES: Major neurocognitive disorder, due to unspecified etiology with behavioral disturbance, psychosis unspecified. PLAN: Initially I had ordered haloperidol 2.5 mg b.i.d. for this patient, continued other medical meds this admission including vitamin D 5000 International Units daily and Depakote 250 mg b.i.d. and polyethylene glycol. As stated, the daughter visited later in the afternoon shortly after 4:00 p.m. and requested discharge. This was made against medical advice discharge. No material management was done. The patient became quite distressed when the daughter came on the unit and was given 1 mg of lorazepam IM x 1. Again, the patient was discharged AMA. ALLERGIES: PENICILLIN, HYDROCODONE, CETIRIZINE. She is a full code. ��������������������������������������������� <ELECTRONICALLY SIGNED> ���������������������������������������� By: Rod Winchester DO ��������������������������������������������� 10/02/181645 53 33 Rod Winchester DO /nt
== END 2018-10-01 18:30 | disposition left against medical advice (07) | DRG 884 ==
LOC: SBH 12:13
PROVIDERS: ADMIT Psychiatry & Neurology Psychiatry
DX: F01.51 Vascular dementia, unspecified severity, with behavioral disturbance (principal); I42.9 Cardiomyopathy, unspecified; N18.9 Chronic kidney disease, unspecified; F29 Unspecified psychosis not due to a substance or known physiological condition; Z53.21 Procedure and treatment not carried out due to patient leaving prior to being seen by health care provider; I12.9 Hypertensive chronic kidney disease with stage 1 through stage 4 chronic kidney disease, or unspecified chronic kidney disease; Z88.6 Allergy status to analgesic agent; Z88.0 Allergy status to penicillin; Z88.8 Allergy status to other drugs, medicaments and biological substances; Z79.899 Other long term (current) drug therapy; Z90.710 Acquired absence of both cervix and uterus
CPT/HCPCS: 10880